=== PATIENT | male | born 1935 | race Hispanic/Latino ===

== ENCOUNTER 2017-02-08 20:29 | Inpatient (IN) | payer MEDICAID, SELFPAY ==
[2017-02-08 21:51] LABS: #Eosinphils 0.2 thou/uL (0.0-0.7); #Lymphocytes 1.5 thou/uL (1.20-3.40); #Monocytes 0.8 thou/uL (0.11-0.59); #Neutrophils 3.5 thou/uL (1.40-6.50); %Basophils 0.3 % (0.0-1.0); %Eosinophils 2.8 % (0.0-10.0); %Lymphocytes 25.3 % (21.0-51.0); %Monocytes 13.1 % (0.0-10.0); Mean Platelet Volume 9.1 fL (7.4-10.4); Red Blood Cell (RBC) Count 4.01 mill/uL (4.70-6.10); White Blood Cell (WBC) Count 6.1 thou/uL (4.8-10.8)
[2017-02-08 22:46] LABS: BUN (Urea Nitrogen) 24 mg/dL (8.4-25.7); Calc. Creatinine Clearance 0 mL/min (70-130); Calcium 9.2 mg/dL (7.8-10.44); Carbon Dioxide 22 mmol/L (23-31); Chloride 109 mmol/L (98-107); Estimated GFR-MDRD 34
[2017-02-08 22:59] LABS: Anion Gap 15 mmol/L (10-20)
[2017-02-08] MEDS ORDERED: Acetaminophen 325 MG TAB PO PRN (23:59)
[2017-02-08] MEDS ORDERED: Ondansetron HCl/PF 4 MG/2 ML Vial IVP PRN (23:59)
[2017-02-08] MEDS ORDERED: Ondansetron ODT 4 MG TAB SL PRN (23:59)
[2017-02-09] MEDS ORDERED: HYDROcodone/Acetaminophen 10/325 mg Tablet PO PRN (00:11)
[2017-02-09] MEDS ORDERED: Dextrose 5% in Water 1,000 ML IV PRN (00:11)
[2017-02-09] MEDS ORDERED: HYDROcodone/Acetaminophen 5/325 mg Tablet PO PRN (00:11)
[2017-02-09] MEDS ORDERED: HumaLOG 300 UNITS/3 ML VIAL SC PRN (00:11)
[2017-02-09] MEDS ORDERED: Enoxaparin Sodium 30 MG/0.3 ML SYRINGE SC SCH (00:11)
[2017-02-09] MEDS ORDERED: Ondansetron HCl/PF 4 MG/2 ML Vial IVP PRN (00:11)
[2017-02-09] MEDS ORDERED: Dextrose 50% Abboject 50 ML SYRINGE SLOW IVP PRN (00:11)
[2017-02-09 00:26] VITALS: BMI 25.7
[2017-02-09] MEDS: Vancomycin HCl 1 GM in Premix Bag 1 BAG IVPB SCH (00:47)
[2017-02-09] MEDS: hydrALAZINE 20 MG/ML VIAL SLOW IVP PRN (00:47)
[2017-02-09 06:24] LABS: Anion Gap 10 mmol/L (10-20); BUN (Urea Nitrogen) 23 mg/dL (8.4-25.7); Calc. Creatinine Clearance 30 mL/min (70-130); Calcium 8.7 mg/dL (7.8-10.44); Carbon Dioxide 28 mmol/L (23-31); Chloride 105 mmol/L (98-107); Estimated GFR-MDRD 36
[2017-02-09 06:31] LABS: Band 4 % (5-11); Hematocrit 37.3 % (42.0-52.0); Mean Platelet Volume 8.6 fL (7.4-10.4); Neutrophil 75 % (42-75); Red Blood Cell (RBC) Count 3.86 mill/uL (4.70-6.10); White Blood Cell (WBC) Count 4.3 thou/uL (4.8-10.8)
--- NOTE | 2017-02-09 07:04 | HP ---
DATE OF ADMISSION: 02/08/2017 TIME OF SERVICE: 2245 hours PRIMARY CARE PHYSICIAN: None. CHIEF COMPLAINT: Toe infection. HISTORY OF PRESENT ILLNESS: Mr. Reardon is an 81-year-old Afghan male who has received all his prio r care in [place]. He has a history of diabetes and hypertension. The patient was transferred from the [place], where he presented for evaluation of toe swelling, redness, and pain for the last 2 months or so. There he had labs that showed increased potassium, creatinine 1.94, elevated sed rate and CRP, elevat ed blood pressure, and x-ray of the right foot that showed osseous destruction of the distal second p halanx. He was subsequently transferred here for evaluation. In the emergency department here, repeat CBC was done that was stable. Dr. West was called who [facility] to consult and we were called for admission. The patient denies any fevers or chills, no chest pain or shortness of breath, no nausea or vomiting, diarrhea, or constipation. Patient does have a history of longstanding diabetes for the last 27 to 28 years. He says it is unde r poor control, however, hemoglobin A1c is low at 5.7. He does have hypertension, he takes captopril also for. He gets his medicines from [place]. He denies any other current complaints. PAST MEDICAL HISTORY: 1. Diabetes mellitus type 2. 2. Hypertension. 3. Probable CKD 3. 4. Probable peripheral vascular disease. PAST SURGICAL HISTORY: Denied. HOME MEDICATIONS: 1. Metformin 850 mg p.o. q.a.m. 2. Captopril 25 mg p.o. q.a.m. ALLERGIES: NKDA. FAMILY HISTORY: Negative for clotting or bleeding disorder, no immune dysfunction. There is some di abetes sporadically. SOCIAL HISTORY: Negative for habits x3. He lives here with his and daughter. We discussed cod e status, patient does wish to be a FULL CODE. His daughter is his medical decision maker. He was p resent with his daughter and granddaughter. REVIEW OF SYSTEMS: A 10-point review of systems was performed and negative for all other systems exc ept as stated as per HPI. PHYSICAL EXAMINATION: VITAL SIGNS: Temperature 98.8, pulse 79, blood pressure 176/81, respiratory rate 18, satting 94% on room air. GENERAL: He is awake. He is alert. He is oriented x3 . He is thin, frail-looking male, a ppears to be in no acute distress. HEENT: Normocephalic, atraumatic. Pupils are equal, round, reactive to light bilaterally. Mucous m embranes are moist. He has no visible lesions. No thrush. NECK: Supple without lymphadenopathy, JVD, or thyromegaly. He does have normal carotid upstrokes. I do not hear bruits. LUNGS: Clear to auscultation bilaterally. He has adequate air movement. Symmetrical chest excursio n. There is no prolonged expiratory phase. He has no wheezes, rales, or rhonchi. CARDIOVASCULAR: Normal S1 and S2. There is no S3 or S4. He had faint 2/6 systolic ejection murmur, best heard at the left upper sternal border without radiation. He has no diastolic murmurs. ABDOMEN: Soft, nontender, nondistended with normoactive bowel sounds. There is no rebound, rigidity , or guarding. EXTREMITIES: No cyanosis, no clubbing. He has edema of the left leg from the mid tibial level dista lly, 2+ pitting mostly at the ankle of the right leg. Left leg has no edema. He has nonpalpable pul ses in his dorsalis pedis and posterior tibial bilaterally. I cannot palpate peroneal pulse either. His left foot is cool, right foot is warm up to just proximal to the ankle. On the distal second to e just at the distal interphalangeal joint, there is a diabetic neuropathic ulcer present, opening of approximately 3-4 mm. Could not probe to bone; however, the toe is enlarged and edematous. It is t corona to motion. I cannot express purulence from it at this time. There is some redness extending u p to the dorsal bridge of the foot and some desquamation of the skin. MUSCULOSKELETAL: Otherwise normal to inspection. His large joints appear uninflamed and no palpable effusions. NEUROLOGIC: Cranial nerves II through XII are grossly intact without any focal neurological deficits . SKIN: Otherwise warm, moist. No well perfused. I do not see any other lesions. LABORATORY DATA: CMP at the outside facility show potassium of 5.8, creatinine 1.94, BUN is 26. Sod ium 140, chloride 107, bicarbonate 22. Liver functions were all normal. White blood cell count 6.1 here, hemoglobin 12.4, hematocrit 38.0, platelet count 135,000. CRP at the outside facility is 4.63 with a sed rate initially 62, repeated here was only 24. Hemoglobin A1c earlier today with a 5.7. R epeat potassium here has been ordered, but is pending. RADIOGRAPHIC STUDIES: Right toe three views showed right second toe distal phalanx osseous destructi on consistent with osteomyelitis. ASSESSMENT AND PLAN: 1. Chronic osteomyelitis of the distal second phalanx of the foot: This has been going on for some time. He already has osseous destruction. I am concerned about the ability for him to be able to he al this up with a distal amputation; however, we will consult Dr. West for his opinion. May need m ore of a vascular workup, or may need a more proximal amputation. We will leave to the discretion of Dr. West's expertise. 2. Diabetic neuropathic ulcer: The patient does have some degree of diabetic neuropathy. Wound car e has been consulted, but likely will not need to do anything until postoperative. 3. Diabetes mellitus type 2: Hemoglobin A1c is 5.7, so seems under reasonable control. He is on me tformin normally, we will use a sliding scale insulin for correction only right now, anticipation of surgery. 4. Hypertension: Blood pressure 176/81, patient is supposed to take his captopril this morning. We would use p.r.n. hydralazine, monitor his pressures closely. 5. Elevated creatinine 1.94, likely chronic kidney disease, would be stage 3. The patient does not have any known history of kidney problems, given his FADUMO inhibitor certainly could be contributing. We will hold it for now and gently hydrate. 6. Hyperkalemia: Potassium 5.8, patient has been on FADUMO inhibitor and does have increased creatinin e. Get treatment for that at the outside facility, repeat here is pending. We will hold captopril f or now and repeat in the morning.
--- NOTE | 2017-02-09 08:52 | HP ---
HISTORY OF PRESENT ILLNESS: This is an 81-year-old male patient, ambulatory at home, brought to the emergency room with osteomyelitis of the right second toe documented by radiographs, demonstrating os teomyelitis of the distal phalanx. He has cellulitis of the dorsum of the foot to the ankle, mild ed amaris. TOBACCO: He has never smoked. ALCOHOL: None. MEDICATIONS: Captopril 25 mg a day, metformin 850 mg a day. In the hospital, he has been placed on vancomycin and cefepime. White count 4, hemoglobin 11.8, BUN 23, creatinine 1.89 on admission, 1.8 t his morning. Electrolytes unremarkable. PAST SURGICAL HISTORY: He had umbilical hernia repair in [place] years ago. He has a hernia mass abo ve his umbilicus that he has had for many years that is asymptomatic. He has had prostate surgery an d is incontinence since and wears a diaper. PAST MEDICAL HISTORY: Diabetes, hypertension. PHYSICAL EXAMINATION: VITAL SIGNS: Height 5 feet 4 inches, weight 150 pounds, 25 BMI, temperature 99.7, pule 78, blood pre ssure 165/72. HEAD, EARS, EYES, NOSE AND THROAT: Unremarkable. LUNGS: Clear to auscultation. CARDIAC: Regular rate and rhythm without murmur or gallop. ABDOMEN: Soft, nontender. EXTREMITIES: Palpable femoral, popliteal pulses bilaterally. I cannot palpate pedal pulses. Right second toe reveals deviation of the great toe beneath the second toe and he has ulceration over the d orsal aspect of distal phalanx of second toe with edema of that second toe with cellulitis extending over the dorsum of foot and edema. ASSESSMENT AND PLAN: 1. Diabetic infection, right second toe with osteomyelitis. Would recommend amputation of the right second toe proximally. We will plan this tomorrow. We will allow him to eat today and n.p.o. after midnight tonight. 2. Peripheral artery disease by physical examination. There is no history of claudication. He is a mbulatory. He does not smoke. We will ask Dr. Richy Quinteros to see him regarding assessment of his c irculation to optimize wound healing. 3. Diabetes mellitus. 4. Hypertension. 5. Urinary incontinence after prostate surgery. 6. Abdominal mass supraumbilical. This is about 5-6 cm mass. I cannot reduce it, but he is asympto matic. We will await CT angio and they can address this abdominal wall mass at that time. I doubt a ny surgical intervention will be necessary as it is asymptomatic.
[2017-02-09] MEDS: Sodium Chloride 0.9% 1,000 ML IV SCH ×2 (08:58→20:19)
[2017-02-09] MEDS: Famotidine/PF 20 mg/2ml Vial SLOW IVP SCH (08:59)
[2017-02-09] MEDS ORDERED: FLU VACC TS2017-18 (>65YR) 0.5 ML SYRINGE IM ONE (09:00)
[2017-02-09] MEDS ORDERED: Cefepime 1 GM in Sodium Chloride 0.9% 100 ML IVPB SCH (09:00)
[2017-02-09] MEDS: Acetaminophen 325 MG TAB PO PRN (09:17)
--- NOTE | 2017-02-09 09:42 | PDOC.PN ---
- Subjective Encounter Start Date: 02/09/17 Encounter Start Time: 07:30 Subjective: no pain in right foot - Objective Resuscitation Status: Resuscitation Status FULL:Full Resuscitation MAR Reviewed: Yes Vital Signs & Weight: Vital Signs (12 hours) Temp Pulse Resp BP Pulse Ox 02/09/17 09:15 99.1 F 87 16 137/69 93 L 02/09/17 04:00 99.7 F H 78 18 165/72 H 94 L 02/09/17 00:47 75 02/09/17 00:05 99.3 F 75 18 185/85 H 96 Weight Weight 150 lb I&O: 02/08/17 02/09/17 02/10/17 06:59 06:59 06:59 Intake Total 100 Balance 100 Result Diagrams: 02/09/17 05:25 02/09/17 05:25 Additional Labs: Accuchecks 02/09/17 02/08/17 05:56 23:31 POC Glucose 142 H 76 Phys Exam - Physical Examination HEENT: PERRLA, moist MMs Neck: no JVD, supple Respiratory: no wheezing, no rales Cardiovascular: RRR, no significant murmur Gastrointestinal: soft, non-tender, positive bowel sounds midline mass, non pulsatile Musculoskeletal: pulses present right foot erythema and mild edema Neurological: non-focal, moves all 4 limbs Psychiatric: A&O x 3 Dx/Plan (1) 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 Status: Acute (2) Cellulitis of right foot Code(s): L03.115 - CELLULITIS OF RIGHT LOWER LIMB Status: Acute (3) DM type 2 (diabetes mellitus, type 2) Status: Chronic Qualifiers: Diabetes mellitus complication status: with kidney complications Diabetes mellitus complication detail: with chronic kidney disease Diabetes mellitus usp insulin use: without usp use Chronic kidney disease stage: stage 3 (moderate) Qualified Code(s): E11.22 - Type 2 diabetes mellitus with diabetic chronic kidney disease; N18.3 - Chronic kidney disease, stage 3 ( moderate); N18.3 - Chronic kidney disease, stage 3 (moderate) (4) CKD (chronic kidney disease) stage 3, GFR 30-59 ml/min Code(s): N18.3 - CHRONIC KIDNEY DISEASE, STAGE 3 (MODERATE) Status: Chronic (5) PVD (peripheral vascular disease) Code(s): I73.9 - PERIPHERAL VASCULAR DISEASE, UNSPECIFIED Status: Chronic - Plan is on vanc and cefepime -: wound care -: for amp in am along with vasc procedures if needed -: gentle hydration, watch for renal function -: to amb as tolerated * . Review of Systems - Medications/Allergies Allergies/Adverse Reactions: Allergies Allergy/AdvReac Type Severity Reaction Status Date / Time No Known Drug Allergies Allergy Verified 02/08/17 23:58 Medications: Current Medications Acetaminophen (Tylenol) 650 mg PO Q4H PRN PRN Reason: Headache/Fever or Pain Last Admin: 02/09/17 09:17 Dose: 650 mg Hydrocodone Bitart/Acetaminophen ([place] 10/325) 1 tab PO Q4H PRN PRN Reason: SEVERE Pain (7-10) Hydrocodone Bitart/Acetaminophen ([place] 5/325) 1 tab PO Q4H PRN PRN Reason: Moderate Pain (4-6) Dextrose/Water (Dextrose 50%) 25 gm SLOW IVP PRN PRN PRN Reason: Hypoglycemia Famotidine (Pepcid) 20 mg SLOW IVP DAILY [facility] Last Admin: 02/09/17 08:59 Dose: 20 mg Glucagon (Glucagon) 1 mg IM PRN PRN PRN Reason: Hypoglycemia Hydralazine HCl (Apresoline) 5 mg SLOW IVP Q2H PRN PRN Reason: SBP Greater Than 170 Last Admin: 02/09/17 00:47 Dose: 5 mg Dextrose/Water (D5w) 1,000 mls @ 0 mls/hr IV .Q0M PRN; As Directed PRN Reason: Hypoglycemia Vancomycin HCl 1 gm/ Device 200 mls @ 133.333 mls/hr IVPB Q24H [facility] Last Admin: 02/09/17 00:47 Dose: 200 mls Cefepime HCl 1 gm/Miscellaneous Medication 1 each/ Sterile Water 10 mls @ 120 mls/hr SLOW IVP Q12HR [facility] Sodium Chloride (Normal Saline 0.9%) 1,000 mls @ 100 mls/hr IV .Q10H [facility] Last Admin: 02/09/17 08:58 Dose: 1,000 mls Insulin Human Lispro (Humalog) 0 units SC .MILD SLIDING SCALE PRN PRN Reason: Mild Correctional Scale Ondansetron HCl (Zofran) 4 mg IVP Q6H PRN PRN Reason: Nausea/Vomiting Sodium Chloride (Flush - Normal Saline) 10 ml IVF PRN PRN PRN Reason: Saline Flush Stop: 02/09/17 11:00
[2017-02-09] MEDS: Cefepime 1 GM, Admixture Fee 1 EACH in Sterile Water 10 ML SLOW IVP SCH ×2 (10:06→20:19)
--- NOTE | 2017-02-09 14:38 | CON ---
DATE OF ADMISSION: 02/08/2017 DATE OF CONSULTATION: 02/09/2017 HISTORY OF PRESENT ILLNESS: Mr. Reardon is an 81-year-old [place] speaking only patient, who is ambu latory at home, was brought to the emergency room with right great toe osteomyelitis. He is due for a great toe amputation tomorrow. He has cellulitis of the dorsum of the foot and ankle and some sanjeev a of his foot and ankle. He has a thin well-perfused leg. Femoral pulses are palpable bilaterally. I cannot palpate popliteal, dorsalis pedis or posterior tibial pulses. We have attempted to get a C T angiogram, but his IV is inadequate. He has no IV sites other than placing a central line, which I do not think is reasonable in this situation to get a CT angiogram. I have been asked to see him fo r vascular evaluation. PAST MEDICAL HISTORY: 1. Diabetes mellitus. 2. Hypertension. PAST SURGICAL HISTORY: 1. Umbilical hernia in [place] years ago. 2. Prostate surgery. MEDICATIONS AT HOME: 1. Captopril 25 mg every day. 2. Metformin 850 mg every day. ALLERGIES: None. SOCIAL HISTORY: He does not use tobacco or alcohol. PHYSICAL EXAMINATION: GENERAL: This is an elderly gentleman resting comfortably. VITAL SIGNS: Temperature is 99.1, pulse is 87 and regular, blood pressure is 137/69. LUNGS: Clear bilaterally. HEART: Rhythm is regular. ABDOMEN: Soft and nontender. EXTREMITIES: There is no edema, other than of his right foot and ankle. VASCULAR: He has palpable carotid, radial, and femoral pulses bilaterally. I cannot palpate distal pulses. LABORATORY DATA: White blood cell count is 4.3, hemoglobin is 11.8. Creatinine is 1.80, potassium i s 4.9. ASSESSMENT AND PLAN: Osteomyelitis of the right foot. I have been asked to investigate his vascular inflow. We will plan for angiograms early this week for anatomic evaluation.
[2017-02-10] MEDS: Vancomycin HCl 1 GM in Premix Bag 1 BAG IVPB SCH (01:23)
[2017-02-10] MEDS: Sodium Chloride 0.9% 1,000 ML IV SCH ×2 (05:04→17:16)
[2017-02-10 05:42] LABS: Anion Gap 8 mmol/L (10-20); BUN (Urea Nitrogen) 20 mg/dL (8.4-25.7); Calc. Creatinine Clearance 31 mL/min (70-130); Calcium 8.3 mg/dL (7.8-10.44); Carbon Dioxide 26 mmol/L (23-31); Chloride 108 mmol/L (98-107); Estimated GFR-MDRD 38
[2017-02-10] MEDS: Cefepime 1 GM, Admixture Fee 1 EACH in Sterile Water 10 ML SLOW IVP SCH ×2 (09:11→21:30)
[2017-02-10] MEDS: Famotidine/PF 20 mg/2ml Vial SLOW IVP SCH (09:11)
--- NOTE | 2017-02-10 09:26 | PDOC.PN ---
- Subjective Encounter Start Date: 02/10/17 Encounter Start Time: 07:15 Subjective: feels better, no pain in his foot -: some cough but no expectoration - Objective Resuscitation Status: Resuscitation Status FULL:Full Resuscitation MAR Reviewed: Yes Vital Signs & Weight: Vital Signs (12 hours) Temp Pulse Resp BP Pulse Ox 02/10/17 07:28 98.6 F 71 18 174/79 H 98 02/10/17 04:00 98.7 F 71 20 162/71 H 91 L 02/10/17 00:00 98.7 F 70 20 157/75 H 95 Weight Weight 150 lb I&O: 02/09/17 02/10/17 02/11/17 06:59 06:59 06:59 Intake Total 100 2942 Balance 100 2942 Result Diagrams: 02/09/17 05:25 02/10/17 04:19 Additional Labs: Accuchecks 02/10/17 02/09/17 02/09/17 05:56 20:16 16:58 POC Glucose 112 H 145 H 129 H 02/09/17 11:39 POC Glucose 151 H Phys Exam - Physical Examination HEENT: PERRLA, moist MMs Neck: no JVD, supple Respiratory: no wheezing, no rales Cardiovascular: RRR, no significant murmur Gastrointestinal: soft, non-tender, positive bowel sounds right foot erythema and edema is receding Neurological: non-focal, moves all 4 limbs Psychiatric: A&O x 3 Dx/Plan (1) 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 Status: Acute (2) Cellulitis of right foot Code(s): L03.115 - CELLULITIS OF RIGHT LOWER LIMB Status: Acute (3) DM type 2 (diabetes mellitus, type 2) Status: Chronic Qualifiers: Diabetes mellitus complication status: with kidney complications Diabetes mellitus complication detail: with chronic kidney disease Diabetes mellitus watermelon inspector insulin use: without prison use Chronic kidney disease stage: stage 3 (moderate) Qualified Code(s): E11.22 - Type 2 diabetes mellitus with diabetic chronic kidney disease; N18.3 - Chronic kidney disease, stage 3 ( moderate); N18.3 - Chronic kidney disease, stage 3 (moderate) (4) CKD (chronic kidney disease) stage 3, GFR 30-59 ml/min Code(s): N18.3 - CHRONIC KIDNEY DISEASE, STAGE 3 (MODERATE) Status: Chronic (5) PVD (peripheral vascular disease) Code(s): I73.9 - PERIPHERAL VASCULAR DISEASE, UNSPECIFIED Status: Chronic - Plan is going for amp of right 2nd toe along with vasc studies today -: july tx to medsurg floor -: watch for vol overload/renal function -: is on cefepime and vanc * . Review of Systems - Medications/Allergies Allergies/Adverse Reactions: Allergies Allergy/AdvReac Type Severity Reaction Status Date / Time No Known Drug Allergies Allergy Verified 02/08/17 23:58 Medications: Current Medications Acetaminophen (Tylenol) 650 mg PO Q4H PRN PRN Reason: Headache/Fever or Pain Last Admin: 02/09/17 09:17 Dose: 650 mg Hydrocodone Bitart/Acetaminophen ([place] 10/325) 1 tab PO Q4H PRN PRN Reason: SEVERE Pain (7-10) Hydrocodone Bitart/Acetaminophen ([place] 5/325) 1 tab PO Q4H PRN PRN Reason: Moderate Pain (4-6) Dextrose/Water (Dextrose 50%) 25 gm SLOW IVP PRN PRN PRN Reason: Hypoglycemia Famotidine (Pepcid) 20 mg SLOW IVP DAILY [facility] Last Admin: 02/10/17 09:11 Dose: 20 mg Glucagon (Glucagon) 1 mg IM PRN PRN PRN Reason: Hypoglycemia Hydralazine HCl (Apresoline) 5 mg SLOW IVP Q2H PRN PRN Reason: SBP Greater Than 170 Last Admin: 02/09/17 00:47 Dose: 5 mg Dextrose/Water (D5w) 1,000 mls @ 0 mls/hr IV .Q0M PRN; As Directed PRN Reason: Hypoglycemia Vancomycin HCl 1 gm/ Device 200 mls @ 133.333 mls/hr IVPB Q24H [facility] Last Admin: 02/10/17 01:23 Dose: 200 mls Cefepime HCl 1 gm/Miscellaneous Medication 1 each/ Sterile Water 10 mls @ 120 mls/hr SLOW IVP Q12HR [facility] Last Admin: 02/10/17 09:11 Dose: 10 mls Sodium Chloride (Normal Saline 0.9%) 1,000 mls @ 100 mls/hr IV .Q10H [facility] Last Admin: 02/10/17 05:04 Dose: 1,000 mls Insulin Human Lispro (Humalog) 0 units SC .MILD SLIDING SCALE PRN PRN Reason: Mild Correctional Scale Ondansetron HCl (Zofran) 4 mg IVP Q6H PRN PRN Reason: Nausea/Vomiting
[2017-02-10] MEDS ORDERED: Bupivacaine 0.25% HCL 30 ML VIAL ONE (12:20)
[2017-02-10] MEDS ORDERED: Bupivacaine PF 0.5% 30 ML VIAL ONE (12:20)
[2017-02-10] MEDS ORDERED: Bupivacaine/Epinephrine 0.25% 30 ML VIAL ONE (12:20)
[2017-02-10] MEDS ORDERED: Fentanyl 100 MCG/2 ML VIAL ONE (12:21)
[2017-02-10] MEDS ORDERED: HYDROmorphone 2 MG/ML VIAL SLOW IVP PRN (12:59)
[2017-02-10] MEDS ORDERED: Morphine Sulfate 2 MG/ML SYRINGE SLOW IVP PRN (12:59)
[2017-02-10] MEDS ORDERED: Promethazine HCl 25 MG/ML VIAL SLOW IVP PRN (12:59)
[2017-02-10] MEDS ORDERED: Promethazine HCl 25 MG/ML VIAL IM PRN (12:59)
[2017-02-10] MEDS ORDERED: Meperidine HCl/PF 25 MG/ML VIAL SLOW IVP PRN (12:59)
[2017-02-10] MEDS ORDERED: Ondansetron HCl/PF 4 MG/2 ML Vial IVP PRN (12:59)
--- NOTE | 2017-02-10 13:49 | OP ---
PREOPERATIVE DIAGNOSES: Diabetic infection, right second toe with osteomyelitis and peripheral arter ial disease (scheduled for arteriogram tomorrow, Dr. Richy Quinteros) palpable femoral, popliteal pulse s. Nonpalpable distal pulses. Poor intravenous access. POSTOPERATIVE DIAGNOSES: Diabetic infection, right second toe with osteomyelitis and peripheral dennys rial disease (scheduled for arteriogram tomorrow, Dr. Richy Quinteros) palpable femoral, popliteal puls es. Nonpalpable distal pulses. Poor intravenous access. PROCEDURE PERFORMED: Right internal jugular central line. Amputation, right second toe of the proxi mal phalanx. Wound left on healing by secondary intention. Wound care placed a wound VAC. SURGEON: Dr. Darci West ANESTHESIA: General LMA. Local 1% Xylocaine. PROCEDURE IN DETAIL: Patient was taken to the operating room where under general LMA anesthesia, nec k, chest and right lower extremity were prepared with ChloraPrep, draped in routine fashion. Right i nternal jugular vein was cannulated with the trocar catheter. J-wire threaded, trocar catheter remov ed. Seldinger technique used to place a central line which was secured with 3-0 silk suture. Biopat ch Sterile dressing applied. Patient tolerated the procedure well. Each port aspirated blood and fl ushed with saline solution. Amputation of the right second toe undertaken with a fish mouth incision and carried the incision down through skin and subcutaneous tissue, connective tissue, and bone [place] sected with a bone cutter, resected proximally with rongeurs. Good hemostasis obtained with cautery. There was some bleeding. Connective tissue debrided sharply. Wound care team arrived and placed a wound VAC. The patient tolerated the procedure well.
[2017-02-10] MEDS ORDERED: hydrALAZINE 20 MG/ML VIAL ONE (13:55)
[2017-02-10] MEDS ORDERED: Ondansetron HCl/PF 4 MG/2 ML Vial ONE (14:25)
[2017-02-10] MEDS ORDERED: Propofol 200 MG/20 ML VIAL ONE (14:25)
[2017-02-10] MEDS ORDERED: Ketorolac Tromethamine 30 MG/ML VIAL ONE (14:25)
[2017-02-10] MEDS ORDERED: Lidocaine 1% PF 5 ML VIAL ONE (14:25)
--- NOTE | 2017-02-10 19:05 | RAD ---
PORTABLE AP CHEST X-RAY: 02/10/2017 HISTORY: Preoperative evaluation. FINDINGS: A right internal jugular vein central venous catheter is noted in place with tip overlying the lower aspect of the right atrium. Cardiac silhouette is magnified by projection but does appear mildly enl arged. Minimal nonspecific increased linear densities at each lung base which may relate to atelecta sis and/or scarring. Vascular calcification seen at the thoracic aorta. Degenerative changes noted in the spine. 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 IMPRESSION: 1. Right internal jugular vein central venous catheter noted in place with tip overlying the right at rium. There is no evidence of a pneumothorax. 2. Bibasilar interstitial densities probably related to atelectasis and/or scarring. POS: ANETTE
[2017-02-10] MEDS: Acetaminophen 325 MG TAB PO PRN (21:29)
[2017-02-10] MEDS: hydrALAZINE 20 MG/ML VIAL SLOW IVP PRN (21:44)
[2017-02-11] MEDS: Sodium Chloride 0.9% 1,000 ML IV SCH ×3 (03:17→21:04)
[2017-02-11] MEDS: Vancomycin HCl 1 GM in Premix Bag 1 BAG IVPB SCH (03:24)
[2017-02-11] MEDS ORDERED: Iopamidol 370 76% 50 ML VIAL FS ONE ×2 (04:58→04:59)
[2017-02-11] MEDS: Cefepime 1 GM, Admixture Fee 1 EACH in Sterile Water 10 ML SLOW IVP SCH ×2 (08:31→20:14)
[2017-02-11] MEDS: Famotidine/PF 20 mg/2ml Vial SLOW IVP SCH (08:32)
[2017-02-11] MEDS ORDERED: Heparin 1000 UNIT/NS 500ML(OR) 500 ML ONE (09:04)
[2017-02-11] MEDS ORDERED: Heparin 10,000 UNITS/1 ML VIAL ONE (09:44)
[2017-02-11] MEDS ORDERED: Protamine Sulfate 50 MG/5 ML VIAL ONE (10:02)
--- NOTE | 2017-02-11 10:36 | PDOC.PN ---
- Subjective Encounter Start Date: 02/11/17 Encounter Start Time: 08:30 -: old records requested/rev Patient seen and examined. No new complaints. No overnight events.plan for angiogram today - Objective Resuscitation Status: Resuscitation Status FULL:Full Resuscitation MAR Reviewed: Yes Vital Signs & Weight: Vital Signs (12 hours) Temp Pulse Resp BP Pulse Ox 02/11/17 08:17 97.7 F 63 18 94 L 02/11/17 07:25 97.7 F 63 18 157/74 H 94 L 02/11/17 04:00 98.2 F 65 16 137/70 97 02/11/17 00:00 98.2 F 69 18 121/62 95 Weight Admit Weight 150 lb Weight 150 lb I&O: 02/10/17 02/11/17 02/12/17 06:59 06:59 06:59 Intake Total 2942 1200 Balance 2942 1200 Result Diagrams: 02/09/17 05:25 02/10/17 04:19 Additional Labs: Accuchecks 02/11/17 02/10/17 02/10/17 05:40 21:39 17:40 POC Glucose 141 H 122 H 183 H Phys Exam - Physical Examination Constitutional: NAD HEENT: PERRLA, moist MMs, sclera anicteric Neck: no JVD, supple Respiratory: no wheezing, no rales, no rhonchi Cardiovascular: RRR, no significant murmur, no rub Gastrointestinal: soft, non-tender, no distention, positive bowel sounds Musculoskeletal: no edema right foot with dressing Neurological: non-focal, normal sensation Psychiatric: normal affect, A&O x 3 Skin: no rash, normal turgor Dx/Plan (1) Cellulitis of right foot Code(s): L03.115 - CELLULITIS OF RIGHT LOWER LIMB Status: Acute (2) 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 Status: Acute Comment: s/p amputation of right 2nd toe (3) CKD (chronic kidney disease) stage 3, GFR 30-59 ml/min Code(s): N18.3 - CHRONIC KIDNEY DISEASE, STAGE 3 (MODERATE) Status: Chronic (4) DM type 2 (diabetes mellitus, type 2) Status: Chronic Qualifiers: Diabetes mellitus complication status: with kidney complications Diabetes mellitus complication detail: with chronic kidney disease Diabetes mellitus french translator insulin use: without jail use Chronic kidney disease stage: stage 3 (moderate) Qualified Code(s): E11.22 - Type 2 diabetes mellitus with diabetic chronic kidney disease; N18.3 - Chronic kidney disease, stage 3 ( moderate); N18.3 - Chronic kidney disease, stage 3 (moderate) (5) PVD (peripheral vascular disease) Code(s): I73.9 - PERIPHERAL VASCULAR DISEASE, UNSPECIFIED Status: Chronic Comment: s/p angiogram today (6) Anemia, macrocytic Code(s): D53.9 - NUTRITIONAL ANEMIA, UNSPECIFIED Status: Chronic - Plan cont current plan of care, continue antibiotics * continue selected home meds * medication reviewed as below * symptomatic treatment * continue IV antibiotics as ordered * monitor renal function after angiogram * wound care. Review of Systems - Review of Systems ENT: negative: Ear Pain, Ear Discharge, Nose Pain, Nose Discharge, Nose Congestion, Mouth Pain, Mouth Swelling, Throat Pain, Throat Swelling, Other Respiratory: negative: Cough, Dry, Shortness of Breath, Hemoptysis, SOB with Excertion, Pleuritic Pain, Sputum, Wheezing Cardiovascular: negative: Chest Pain, Palpitations, Orthopnea, Paroxysmal Noc. Dyspnea, Edema, Light Headedness, Other Gastrointestinal: negative: Nausea, Vomiting, Abdominal Pain, Diarrhea, Constipation, Melena, Hematochezia, Other Genitourinary: negative: Dysuria, Frequency, Incontinence, Hematuria, Retention , Other Musculoskeletal: negative: Neck Pain, Shoulder Pain, Arm Pain, Back Pain, Hand Pain, Leg Pain, Foot Pain, Other - Medications/Allergies Allergies/Adverse Reactions: Allergies Allergy/AdvReac Type Severity Reaction Status Date / Time No Known Drug Allergies Allergy Verified 02/08/17 23:58 Medications: Current Medications Acetaminophen (Tylenol) 650 mg PO Q4H PRN PRN Reason: Headache/Fever or Pain Last Admin: 02/10/17 21:29 Dose: 650 mg Hydrocodone Bitart/Acetaminophen ([place] 10/325) 1 tab PO Q4H PRN PRN Reason: SEVERE Pain (7-10) Hydrocodone Bitart/Acetaminophen ([place] 5/325) 1 tab PO Q4H PRN PRN Reason: Moderate Pain (4-6) Dextrose/Water (Dextrose 50%) 25 gm SLOW IVP PRN PRN PRN Reason: Hypoglycemia Famotidine (Pepcid) 20 mg SLOW IVP DAILY FRENCH Last Admin: 02/11/17 08:32 Dose: 20 mg Glucagon (Glucagon) 1 mg IM PRN PRN PRN Reason: Hypoglycemia Hydralazine HCl (Apresoline) 5 mg SLOW IVP Q2H PRN PRN Reason: SBP Greater Than 170 Last Admin: 02/10/17 21:44 Dose: 5 mg Dextrose/Water (D5w) 1,000 mls @ 0 mls/hr IV .Q0M PRN; As Directed PRN Reason: Hypoglycemia Vancomycin HCl 1 gm/ Device 200 mls @ 133.333 mls/hr IVPB Q24H [facility] Last Admin: 02/11/17 03:24 Dose: 200 mls Cefepime HCl 1 gm/Miscellaneous Medication 1 each/ Sterile Water 10 mls @ 120 mls/hr SLOW IVP Q12HR [facility] Last Admin: 02/11/17 08:31 Dose: 10 mls Sodium Chloride (Normal Saline 0.9%) 1,000 mls @ 100 mls/hr IV .Q10H [facility] Last Admin: 02/11/17 03:17 Dose: 1,000 mls Insulin Human Lispro (Humalog) 0 units SC .MILD SLIDING SCALE PRN PRN Reason: Mild Correctional Scale Ondansetron HCl (Zofran) 4 mg IVP Q6H PRN PRN Reason: Nausea/Vomiting
[2017-02-11] MEDS ORDERED: Ondansetron ODT 4 MG TAB PO PRN (10:37)
[2017-02-11] MEDS ORDERED: Senokot 8.6 MG TAB PO PRN (10:37)
[2017-02-11] MEDS ORDERED: Mag-Al 1200 mg/1200 mg/30 ML UDCUP PO PRN (10:37)
[2017-02-11] MEDS ORDERED: Labetalol HCl 100 MG/20 ML VIAL SLOW IVP PRN (10:37)
[2017-02-11] MEDS ORDERED: Chloraseptic Spray 180 ml Bottle PO PRN (10:37)
[2017-02-11] MEDS ORDERED: Loperamide HCl 2 MG CAP PO PRN (10:37)
[2017-02-11] MEDS ORDERED: Artificial Tears 18 DROP/0.9 ML EA EYE PRN (10:37)
[2017-02-11] MEDS ORDERED: Temazepam 15 MG CAP PO PRN (10:37)
[2017-02-11] MEDS ORDERED: Eucerin (Mineral Oil/Petrolatum,White) 30 gm Jar TOP PRN (10:37)
[2017-02-11] MEDS ORDERED: Loratadine 10 MG TAB PO PRN (10:37)
[2017-02-11] MEDS ORDERED: Sodium Chloride 0.65% Nasal 44 ML BOT EA NARE PRN (10:37)
[2017-02-11] MEDS ORDERED: Milk Of Magnesia 30 ML UDCUP PO PRN (10:37)
--- NOTE | 2017-02-11 13:01 | OP ---
DATE OF PROCEDURE: 02/11/2017 PREOPERATIVE DIAGNOSIS: Peripheral vascular disease with right foot gangrene status post toe amputation. POSTOPERATIVE DIAGNOSIS: Peripheral vascular disease with right foot gangrene status post toe amputation. PROCEDURES: 1. Abdominal aortogram with pelvic runoff. 2. Right external iliac artery angiogram with right leg run off. 4. Right popliteal artery angiogram. 5. Right superficial femoral artery angiogram. 6. Right anterior tibial artery angiogram. 7. Right anterior tibial artery LAUNDRY MANAGER with a 2 x 220 followed by a 3 x 220 [place] balloon taken to 12 mmHg for 2 minutes in 2 separate locations. 8. Ultrasound guided arterial access. 9. Left external iliac artery angiogram. 10. Closure with a ProGlide closure device. SURGEON: Richy Quinteros M.D. ANESTHESIA: 1% lidocaine for local. TOTAL CONTRAST: 40 mL. TOTAL FLUOROSCOPY TIME: 6.3 minutes. PROCEDURE IN DETAIL: After consent was obtained, the patient was brought to the Licensed Audiologist and placed in supine position on the Licensed Audiologist table. Appropriate anesthetic monitor was placed. The groins were prepped and draped in usual sterile fashion. Left groin was anesthetized with 1% lidocaine. Using ultrasound guidance, the left common femoral artery was percutaneously accessed and a Yonghong Tech guidewire passed into the upper abdominal aorta. A 5-Iraqi sheath followed by a Contra catheter was placed in the aorta. Hand injected aortogram was performed. There was no obstructing aortic, common iliac or external iliac arterial atherosclerosis. The Contra catheter was guided over the aortic bifurcation down into the external iliac artery. Using digital angiography contrast was chased from groin to the foot. The common femoral and superficial femoral, and profunda femoris arteries were all widely patent without intraluminal encroachment by atherosclerotic disease. At the level of the knee, the popliteal artery was widely patent. There was normal trifurcation below the knee. Posterior tibial, anterior tibial and profunda artery origins were widely patent. The catheter was guided further down into the superficial femoral artery. Hand injected arteriogram was performed again, illuminating the tibial arteries under digital subtraction. The anterior tibial artery was diffusely diseased throughout its length, but had a good caliber distal target vessel. The posterior tibial and peroneal arteries were patent into the foot. The patient was given 5000 units of heparin. A Magic Torque guidewire was placed into the distal superficial femoral artery. A 5- Iraqi sheath was removed and a 5-Iraqi destination sheath placed down with its tip in the superficial femoral artery. An angled glide catheter was placed into the distal popliteal artery. Hand injected arteriogram was performed illuminating the trifurcation. Using a Luge guidewire, the Luge was guided down into the origin of the anterior tibial artery. Catheter was then chased into the origin of the anterior tibial artery. Hand injected arteriogram was performed illuminating the full length of the anterior tibial confirming the diffuse disease. Luge guidewire was guided into the distal anterior tibial below the area of stenosis. We initially selected a 2 x 220 [place] balloon. This was inflated for 2 minutes in 2 separate locations at 12 mmHg. Followup arteriogram with the catheter in the superficial femoral artery showed an inadequate result and therefore we selected 3 x 220 and performed a similar angioplasty. Followup angiogram with the catheter in the distal popliteal artery showed an excellent result with no residual stenosis. Guidewires and catheters were removed. The Yonghong Tech guidewire was replaced and the sheath withdrawn over the aortic bifurcation with its tip in the external iliac artery. Hand injected arteriogram was performed of the external iliac artery on the left, confirming that there was no atherosclerotic disease. ProGlide was then deployed and with good hemostasis. The patient tolerated the procedure well, and was transferred to the recovery room and will be monitored there for 4 hours prior to going back to the floor. RANJIT
[2017-02-11] MEDS: hydrALAZINE 20 MG/ML VIAL SLOW IVP PRN ×2 (13:49→20:13)
[2017-02-11] MEDS: Diabetic Tussin 200 MG/10 ML UDCUP PO PRN (14:50)
--- NOTE | 2017-02-11 20:53 | CCL ---
DATE OF PROCEDURE: 02/11/2017 PREOPERATIVE DIAGNOSIS: Peripheral vascular disease with right foot gangrene status post toe amputat ion. POSTOPERATIVE DIAGNOSIS: Peripheral vascular disease with right foot gangrene status post toe amputa tion. PROCEDURES: 1. Abdominal aortogram with pelvic runoff. 2. Right external iliac artery angiogram with right leg run off. 3. Right common femoral artery angiogram. 4. Right popliteal artery angiogram. 5. Right superficial femoral artery angiogram. 6. Right anterior tibial artery angiogram. 7. Right anterior tibial artery VOTING MACHINE REPAIRER with a 2 x 220 followed by a 3 x 220 Sachse balloon taken to 12 mmHg for 2 minutes in 2 separate locations. 8. Ultrasound guided arterial access. 9. Left external iliac artery angiogram. 10. Closure with a ProGlide closure device. SURGEON: Richy Quinteros M.D. ANESTHESIA: 1% lidocaine for local. TOTAL CONTRAST: 40 mL. TOTAL FLUOROSCOPY TIME: 6.3 minutes. PROCEDURE IN DETAIL: After consent was obtained, the patient was brought to the Drupal Web Developer and placed in supine position on the Drupal Web Developer table. Appropriate anesthetic monitor was placed. The groins wer e prepped and draped in usual sterile fashion. Left groin was anesthetized with 1% lidocaine. Using ultrasound guidance, the left common femoral artery was percutaneously accessed and a [employer] guidew phill passed into the upper abdominal aorta. A 5-Latvian sheath followed by a Contra catheter was place d in the aorta. Hand injected aortogram was performed. There was no obstructing aortic, common papo c or external iliac arterial atherosclerosis. The Contra catheter was guided over the aortic bifurca tion down into the external iliac artery. Using digital angiography contrast was chased from groin t o the foot. The common femoral and superficial femoral, and profunda femoris arteries were all widel y patent without intraluminal encroachment by atherosclerotic disease. At the level of the knee, the popliteal artery was widely patent. There was normal trifurcation below the knee. Posterior tibial , anterior tibial and profunda artery origins were widely patent. The catheter was guided further do wn into the superficial femoral artery. Hand injected arteriogram was performed again, illuminating the tibial arteries under digital subtraction. The anterior tibial artery was diffusely diseased thr oughout its length, but had a good caliber distal target vessel. The posterior tibial and peroneal a rteries were patent into the foot. The patient was given 5000 units of heparin. A Magic Torque guid ewire was placed into the distal superficial femoral artery. A 5-Latvian sheath was removed and a 5-F rench destination sheath placed down with its tip in the superficial femoral artery. An angled glide catheter was placed into the distal popliteal artery. Hand injected arteriogram was performed illum inating the trifurcation. Using a Luge guidewire, the Luge was guided down into the origin of the an terior tibial artery. Catheter was then chased into the origin of the anterior tibial artery. Hand injected arteriogram was performed illuminating the full length of the anterior tibial confirming the diffuse disease. Luge guidewire was guided into the distal anterior tibial below the area of stenos is. We initially selected a 2 x 220 Sachse balloon. This was inflated for 2 minutes in 2 separate l ocations at 12 mmHg. Followup arteriogram with the catheter in the superficial femoral artery showed an inadequate result and therefore we selected 3 x 220 and performed a similar angioplasty. Followu p angiogram with the catheter in the distal popliteal artery showed an excellent result with no resid ual stenosis. Guidewires and catheters were removed. The [employer] guidewire was replaced and the she ath withdrawn over the aortic bifurcation with its tip in the external iliac artery. Hand injected a rteriogram was performed of the external iliac artery on the left, confirming that there was no ather osclerotic disease. ProGlide was then deployed and with good hemostasis. The patient tolerated the procedure well, and was transferred to the recovery room and will be monitored there for 4 hours prio r to going back to the floor. POS: [facility]
[2017-02-12 00:07] LABS: Vancomycin, Trough 16.8 ug/mL
[2017-02-12] MEDS: Vancomycin HCl 1 GM in Premix Bag 1 BAG IVPB SCH (00:52)
[2017-02-12] MEDS: Sodium Chloride 0.9% 1,000 ML IV SCH (05:21)
[2017-02-12 05:33] LABS: #Eosinphils 0.1 thou/uL (0.0-0.7); #Monocytes 0.4 thou/uL (0.11-0.59); %Basophils 0.3 % (0.0-1.0); %Eosinophils 1.9 % (0.0-10.0); %Lymphocytes 23.1 % (21.0-51.0); %Monocytes 9.3 % (0.0-10.0); Hematocrit 34.9 % (42.0-52.0); Mean Platelet Volume 8.3 fL (7.4-10.4); Red Blood Cell (RBC) Count 3.58 mill/uL (4.70-6.10); White Blood Cell (WBC) Count 4.5 thou/uL (4.8-10.8)
[2017-02-12 06:02] LABS: Anion Gap 6 mmol/L (10-20); BUN (Urea Nitrogen) 15 mg/dL (8.4-25.7); BUN/Creatinine Ratio 9.26; Calc. Creatinine Clearance 34 mL/min (70-130); Calcium 7.7 mg/dL (7.8-10.44); Carbon Dioxide 28 mmol/L (23-31); Chloride 108 mmol/L (98-107); Estimated GFR-MDRD 41; Phosphorus 2.5 mg/dL (2.3-4.7)
[2017-02-12] MEDS: Cefepime 1 GM, Admixture Fee 1 EACH in Sterile Water 10 ML SLOW IVP SCH (09:19)
[2017-02-12] MEDS: hydrALAZINE 20 MG/ML VIAL SLOW IVP PRN (09:20)
[2017-02-12] MEDS: Famotidine/PF 20 mg/2ml Vial SLOW IVP SCH (09:20)
[2017-02-12] MEDS: Diabetic Tussin 200 MG/10 ML UDCUP PO PRN (09:26)
[2017-02-12] MEDS ORDERED: FLU VACC TS2017-18 (>65YR) 0.5 ML SYRINGE IM ONE (12:00)
--- NOTE | 2017-02-12 12:02 | PDOC.PN ---
- Subjective Encounter Start Date: 02/12/17 Encounter Start Time: 09:45 Subjective: feels better, no pain - Objective Resuscitation Status: Resuscitation Status FULL:Full Resuscitation MAR Reviewed: Yes Vital Signs & Weight: Vital Signs (12 hours) Temp Pulse Resp BP BP Pulse Ox 02/12/17 09:20 75 188/72 H 02/12/17 07:45 97.9 F 66 16 192/84 H 99 02/12/17 04:00 98.3 F 69 16 160/76 H 97 Weight Admit Weight 150 lb Weight 150 lb I&O: 02/11/17 02/12/17 02/13/17 06:59 06:59 06:59 Intake Total 2640 Balance 2640 Result Diagrams: 02/12/17 05:10 02/12/17 05:10 Additional Labs: Accuchecks 02/12/17 02/11/17 02/11/17: 19:54 16:09 POC Glucose 167 H 166 H 129 H Phys Exam - Physical Examination HEENT: PERRLA, moist MMs Neck: no JVD, supple Respiratory: no wheezing, no rales Cardiovascular: RRR, no significant murmur Gastrointestinal: soft, no distention, positive bowel sounds Musculoskeletal: pulses present Neurological: non-focal, moves all 4 limbs Psychiatric: A&O x 3 Dx/Plan (1) 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 Status: Acute Comment: s/p amputation of right 2nd toe (2) Cellulitis of right foot Code(s): L03.115 - CELLULITIS OF RIGHT LOWER LIMB Status: Resolved (3) DM type 2 (diabetes mellitus, type 2) Status: Chronic Qualifiers: Diabetes mellitus complication status: with kidney complications Diabetes mellitus complication detail: with chronic kidney disease Diabetes mellitus analytic programmer insulin use: without analytic programmer use Chronic kidney disease stage: stage 3 (moderate) Qualified Code(s): E11.22 - Type 2 diabetes mellitus with diabetic chronic kidney disease; N18.3 - Chronic kidney disease, stage 3 ( moderate); N18.3 - Chronic kidney disease, stage 3 (moderate) (4) CKD (chronic kidney disease) stage 3, GFR 30-59 ml/min Code(s): N18.3 - CHRONIC KIDNEY DISEASE, STAGE 3 (MODERATE) Status: Chronic (5) PVD (peripheral vascular disease) Code(s): I73.9 - PERIPHERAL VASCULAR DISEASE, UNSPECIFIED Status: Chronic Comment: s/p angioplasty - Plan d/w , july dc home -: meds faxed to his pharmacy -: wound care per surgery advice -: asp daily for pvd, oral iron * .
--- NOTE | 2017-02-12 12:40 | PRG ---
DATE OF SERVICE: 02/12/2017 SUBJECTIVE: Mr. Reardon is doing well. His right second toe looks good. He no longer needs a wound VAC. I would change to wound care 2 to 3 times a week outpatient [facility]. The family can be instructed on wound care. At this point, I will see him in outpatient wound care when they called me in 2 week s or they can visit my office in approximately 3 weeks. I expect this wound to heal without problems successful, interventional angioplasty, anterior tibial artery by Dr. Quinteros.
[2017-02-12 16:41] VITALS: BP 168/69; TEMP 98.5
--- NOTE | 2017-02-12 23:04 | DIS ---
DATE OF ADMISSION: 02/08/2017 DATE OF DISCHARGE: 02/12/2017 DISCHARGE DISPOSITION: To home. PRIMARY DISCHARGE DIAGNOSES: Right second toe osteomyelitis, status post amputation; peripheral vasc ular disease, status post angioplasty of right lower extremity; cellulitis of right foot, resolved. SECONDARY DISCHARGE DIAGNOSES: Diabetes mellitus, type 2; chronic kidney disease, stage 3. PROCEDURES DONE DURING HOSPITALIZATION: The patient has had x-ray of right foot done, which showed e xtensive osseous destruction of distal phalanx of right second toe consistent with osteomyelitis. Th e patient has had amputation of right second toe of the proximal phalanx. Wound was left for healing by secondary intention. He has had angioplasty of right anterior tibial artery, done by Dr. Aldair matthews 02/11/2017. Blood cultures x2 no growth. H&H are 11 and 35, platelet count 129. Discharge BUN an d creatinine are 15 and 1.6. DISCHARGE MEDICATIONS: Aspirin 81 mg p.o. daily, captopril 25 mg p.o. daily, ferrous sulfate 325 mg p.o. twice daily, glipizide 5 mg p.o. daily, metoprolol 25 mg p.o. twice daily. ALLERGIES: No known drug allergies. INPATIENT CONSULTS: Dr. West for General Surgery, Dr. Richy Quinteros for Vascular Surgery. BRIEF COURSE DURING HOSPITALIZATION: The patient initially got admitted on 02/08/2017 for chronic ri ght second toe ulcerations. He was found to have had osteomyelitis on the x-ray of the right second toe. The patient has had consultation with Dr. West for General Surgery and Dr. Quinteros for Vascular Surgery due to peripheral vascular disease. He has had amputation of the right second proximal phal anx by Dr. West and has had angioplasty of right anterior tibial artery done by Dr. Quinteros as well. He was initially on wound VAC, but the wound has been healing well and he will be following wound ca re instructions per Dr. West. He needs to follow up with Dr. West in 2 weeks. His renal functio n has remained stable. He is hemodynamically stable and has been cleared by specialist for discharge today. Please see a [id number] documentation on [facility] for the day of discharge.
--- NOTE | 2017-03-18 11:22 | EKG ---
Test Reason : Blood Pressure : / mmHG Vent. Rate : 078 BPM Atrial Rate : 078 BPM P-R Int : 114 ms QRS Dur : 072 ms QT Int : 370 ms P-R-T Axes : 026 016 056 degrees QTc Int : 421 ms Normal sinus rhythm Normal ECG Confirmed by SHELLEY Caballero, REYNOLD ([id number]), offline editor MONTY BALLARD ([id number]) on 03/18/2017 11:21:56 AM Referred By: SHELLEY Confirmed By:REYNOLD ROSA M.D.
== END 2017-02-12 16:45 | disposition home or self-care (01) | DRG 617 ==
LOC: ERS 20:29 → 2NO 22:43 → SURG B 02-10 13:58
PROVIDERS: ADMIT Internal Medicine Infectious Disease; ATTEND Internal Medicine Infectious Disease
PROC: 0Y6R0Z0 Detachment at Right 2nd Toe, Complete, Open Approach (ICD-10-PCS; 2017-02-10)
PROC: 02H633Z Insertion of Infusion Device into Right Atrium, Percutaneous Approach (ICD-10-PCS; 2017-02-10)
PROC: B41D1ZZ Fluoroscopy of Aorta and Bilateral Lower Extremity Arteries using Low Osmolar Contrast (ICD-10-PCS; principal; 2017-02-11)
PROC: 047P3ZZ Dilation of Right Anterior Tibial Artery, Percutaneous Approach (ICD-10-PCS; 2017-02-11)
DX: E11.69 Type 2 diabetes mellitus with other specified complication (principal); L03.115 Cellulitis of right lower limb; E11.22 Type 2 diabetes mellitus with diabetic chronic kidney disease; M86.9 Osteomyelitis, unspecified; E87.5 Hyperkalemia; E11.51 Type 2 diabetes mellitus with diabetic peripheral angiopathy without gangrene; E11.621 Type 2 diabetes mellitus with foot ulcer; Z79.84 Long term (current) use of oral hypoglycemic drugs; L97.519 Non-pressure chronic ulcer of other part of right foot with unspecified severity; R32 Unspecified urinary incontinence; I12.9 Hypertensive chronic kidney disease with stage 1 through stage 4 chronic kidney disease, or unspecified chronic kidney disease; N18.3 Chronic kidney disease, stage 3 (moderate); D64.9 Anemia, unspecified
CPT/HCPCS: 36415; 36416; 37228; 71010; 75710; 76942; 80048; 80069; 80202; 85025; 85347; 85652; 86140; 88305; 88311; 90471; 90682; 90732; 93005; A4216; C1760; C1769; C1887; G0008; G0009; J0360; J0692; J1644; J1650; J1885; J2001; J2405; J2704; J2720; J3010; J3370; Q2036; S0020; S0028

== ENCOUNTER 2017-02-19 09:07 | Outpatient (CLI) | payer OTHER, SELFPAY ==
--- NOTE | 2017-02-19 11:22 | HP ---
DATE OF SERVICE: 02/19/2017 HISTORY OF PRESENT ILLNESS: Mr. Erwin Reardon is a very pleasant 81-year-old gentleman who present s to the [facility] for evaluation of a wound of the right foot subsequent to amputation of the rig ht second toe. The patient underwent the preceding procedure on 02/10/[address] Darci West. A t the time of surgery, Mr. Reardon also underwent wound VAC placement. Negative pressure therapy was discontinued prior to the patient's discharge from [facility] and the patient has been receiving dressing changes of Silvercel for the wound of the right second toe on a daily ba sis after cleansing and irrigation. Also, during the patient's hospital stay, Mr. Reardon underwent percutaneous revascularization of the right lower extremity on 02/11/[address] Richy Quinteros. PAST MEDICAL HISTORY: 1. Diabetes mellitus. 2. Hypertension. 3. Peripheral vascular disease. 4. Chronic kidney disease stage 3. PAST SURGICAL HISTORY: 1. Umbilical hernia repair. 2. Prostate surgery. 3. Right second toe amputation/wound VAC placement. MEDICATIONS: 1. Iron. 2. Aspirin. 3. Glipizide. 4. Lopressor. 5. Capoten. ALLERGIES: No known diagnosed allergies. SOCIAL HISTORY: Social history is negative for tobacco or ETOH use, current or previous. FAMILY HISTORY: Family history is significant for diabetes mellitus. The patient's father was diagn osed with diabetes mellitus. Family history is negative for coronary artery disease. PHYSICAL EXAMINATION: VITAL SIGNS: Temperature 97.7, pulse 75, respirations 18, blood pressure 183/86. Accu-Chek 116. GENERAL: An 81-year-old gentleman sitting on chair in examination room, in no acute distress. HEENT: Normocephalic, atraumatic. NECK: No nuchal rigidity. CHEST: Clear to auscultation. CARDIAC: Regular rate and rhythm. ABDOMEN: Soft. EXTREMITIES: A wound of the right second toe is present, which measures approximately 0.8 x 0.8 cm. Necrotic and nonviable tissue present within the wound margins was debrided with an excisional full- thickness debridement with the use of a curette. No purulent drainage is associated with the granula ting wound. No cellulitis of the right foot is appreciated. No maceration of the skin of the periwo und is noted. A dorsalis pedis pulse is easily palpable on the right. No significant edema of the [facility] is present on exam today. ASSESSMENT AND PLAN: 1. Wound of right second toe subsequent to right second toe amputation on 02/10/2017. Negative pres sure therapy was initiated at the time of surgery and treatment with the wound VAC was discontinued p rior to the patient's discharge. Dressing changes of Silvercel will be continued on a daily basis af ter cleansing and irrigation. No antibiotics will be prescribed today based upon the appearance of t he wound. I will see Mr. Reardon again in two weeks. 2. Diabetes mellitus. The patient's Accu-Chek in clinic today is 116. The patient has been told th at for optimal wound healing, his blood glucoses should remain below 150. 3. Hypertension. 4. Peripheral vascular disease. The patient is status post percutaneous revascularization of the [facility] lower extremity by Dr. Richy Quinteros on 02/11/2017. 5. Chronic kidney disease stage 3.
== END 2017-02-19 09:08 | disposition home or self-care (01) ==
LOC: WCC 09:07
PROVIDERS: ATTEND Family Medicine
DX: S91.104D Unspecified open wound of right lesser toe(s) without damage to nail, subsequent encounter (principal)
CPT/HCPCS: 11042; 99203; G0463

== ENCOUNTER 2017-03-03 10:04 | Outpatient (CLI) | payer OTHER ==
--- NOTE | 2017-03-03 11:09 | PRG ---
DATE OF SERVICE: 03/03/2017 HISTORY: Mr. Erwin Reardon is a very pleasant 81-year-old gentleman who presents to the [facility] for evaluation of a wound of the right foot subsequent to amputation of the right great toe. The patient underwent the preceding procedure on 02/10/[address] Darci West. At the time of surgery , Mr. Reardon also underwent wound VAC placement. Negative pressure therapy was discontinued prior to the patient's discharge from [facility] and prior to being seen in the Wound Center, the patient had been receiving dressing changes of Silvercel for the wound of the right second toe on a daily basis after cleansing and irrigation. Also, during the patient's hospital stay, Mr. Reardon underwent percutaneous revascularization of the right lower extremity on 02/11/[address] Richy Quinteros. PHYSICAL EXAMINATION: VITAL SIGNS: Temperature 97.5, respirations 18, Accu-Chek 103. EXTREMITIES: A wound of the right second toe is present which measures approximately 0.4 x 0.5 cm. The dimensions of the wound at the time of the patient's last visit were approximately 0.8 x 0.8 cm. Granulation tissue is present within the wound margins. Necrotic and nonviable tissue present within the wound margins was debrided with an excisional full-thickness debridement with the use of a curette and scissors. A small amount of purulent drainage was associated with the wound and was sent for aerobic and anaerobic cultures. No cellulitis of the right foot is appreciated. No maceration of the skin of the periwound is noted. A dorsalis pedis pulse is easily palpable on the right. No significant edema of the right foot is present on exam today. ASSESSMENT AND PLAN: 1. Wound of right second toe subsequent to right second toe amputation on 02/10. Negative pressure therapy was initiated at the time of surgery and treatment with the wound VAC was discontinued prior to the patient's discharge. Dressing changes of Silvercel will be continued on a daily basis after cleansing and irrigation. The patient has been given a prescription for Bactrim DS #20 one p.o. b.i.d. x10 days. Antibiotic therapy will be modified based upon the results of cultures obtained today of the purulent drainage associated with the wound. I will see Mr. Reardon again in 3-4 weeks. 2. Diabetes mellitus. The patient's Accu-Chek in clinic today is 103. The patient has been reminded that for optimal wound healing, his blood glucoses should remain below 150. 3. Hypertension. 4. Peripheral vascular disease. The patient is status post percutaneous revascularization of the right lower extremity by Dr. Richy Quinteros on 2016. 5. Chronic kidney disease stage 3. MTDD
[2017-03-03] MEDS ORDERED: Sodium Chloride 0.9% 15 ML NEB ONE (17:05)
[2017-03-03] MEDS ORDERED: Lidocaine 2% Jelly 5 ML TUBE ONE (17:05)
== END 2017-03-03 10:05 | disposition home or self-care (01) ==
LOC: WCC 10:04
PROVIDERS: ATTEND Family Medicine
DX: T87.89 Other complications of amputation stump (principal); E11.22 Type 2 diabetes mellitus with diabetic chronic kidney disease; I12.9 Hypertensive chronic kidney disease with stage 1 through stage 4 chronic kidney disease, or unspecified chronic kidney disease; N18.3 Chronic kidney disease, stage 3 (moderate); I73.9 Peripheral vascular disease, unspecified
CPT/HCPCS: 11042; 87070; 87077; 87186; 87205; A4218

== ENCOUNTER 2017-03-03 19:04 | Emergency (ER) | payer MEDICAID, OTHER, SELFPAY ==
[2017-03-03 20:12] LABS: #Eosinphils 0.1 thou/uL (0.0-0.7); #Lymphocytes 1.6 thou/uL (1.20-3.40); #Monocytes 0.4 thou/uL (0.11-0.59); #Neutrophils 2.5 thou/uL (1.40-6.50); %Eosinophils 2.3 % (0.0-10.0); %Lymphocytes 34.8 % (21.0-51.0); %Monocytes 7.7 % (0.0-10.0); Hematocrit 41.6 % (42.0-52.0); Mean Platelet Volume 9.1 fL (7.4-10.4); Red Blood Cell (RBC) Count 4.32 mill/uL (4.70-6.10); White Blood Cell (WBC) Count 4.5 thou/uL (4.8-10.8)
[2017-03-03 20:33] LABS: ALT (SGPT) 24 U/L (8-55); AST (SGOT) 22 U/L (5-34); Alkaline Phosphatase 65 U/L (40-150); Anion Gap 14 mmol/L (10-20); BUN (Urea Nitrogen) 37 mg/dL (8.4-25.7); Bilirubin, Total 0.5 mg/dL (0.2-1.2); Calc. Creatinine Clearance 0 mL/min (70-130); Calcium 9.4 mg/dL (7.8-10.44); Carbon Dioxide 20 mmol/L (23-31); Chloride 109 mmol/L (98-107); Estimated GFR-MDRD 33; Protein, Total 8.1 g/dL (5.8-8.1)
[2017-03-03 20:37] LABS: Troponin I Less than 0.010 ng/mL (< 0.028)
--- NOTE | 2017-03-29 20:53 | EKG ---
Test Reason : HTN Blood Pressure : / mmHG Vent. Rate : 060 BPM Atrial Rate : 060 BPM P-R Int : 124 ms QRS Dur : 060 ms QT Int : 408 ms P-R-T Axes : 037 026 054 degrees QTc Int : 408 ms Poor data quality, interpretation may be adversely affected Normal sinus rhythm Normal ECG Confirmed by SOPHIE BRIONES, ROB ([id number]), make up editor ARTUR ROQUE ([id number]) on 03/29/2017 8:52:28 PM Referred By: Confirmed By:ROB BARRIOS MD
== END 2017-03-03 21:21 | disposition home or self-care (01) ==
LOC: ERS 19:04
DX: I12.9 Hypertensive chronic kidney disease with stage 1 through stage 4 chronic kidney disease, or unspecified chronic kidney disease (principal); N18.9 Chronic kidney disease, unspecified; E11.22 Type 2 diabetes mellitus with diabetic chronic kidney disease; Z79.84 Long term (current) use of oral hypoglycemic drugs; Z79.82 Long term (current) use of aspirin; Z79.899 Other long term (current) drug therapy
CPT/HCPCS: 80053; 82553; 84484; 85025; 93005

== ENCOUNTER 2017-03-31 08:55 | Outpatient (CLI) | payer OTHER ==
--- NOTE | 2017-03-31 10:07 | PRG ---
DATE OF SERVICE: 03/31/2017 HISTORY: Mr. Erwin Reardon is a very pleasant 81-year-old gentleman who presents to the Wound Cent er for evaluation of a wound of the right foot subsequent to amputation of the right second toe. The patient underwent the preceding procedure on 02/10/[address] Darci West. At the time of surge ry, Mr. Reardon also underwent wound VAC placement, negative pressure therapy was discontinued prior to the patient's discharge from [facility] and prior to being seen in the [facility], the patient had been receiving dressing changes of Silvercel for the wound of the right sec ond toe on a daily basis after cleansing and irrigation. Also, during the patient's hospital stay, Srinivasa Reardon underwent percutaneous revascularization of the right lower extremity on 02/11/[address] Richy Quinteros. PHYSICAL EXAMINATION: VITAL SIGNS: Temperature 97.5, pulse 57, respirations 19, blood pressure 178/86, Accu-Chek 104. EXTREMITIES: A wound of the right second toe is present which measures approximately 0.3 x 0.3 cm. The dimensions of the wound at the time of the patient's last visit were approximately 0.4 x 0.5 cm. Nonviable tissue associated with the wound was debrided with an excisional partial-thickness debride ment with the use of scissors and a curet. No serous or purulent drainage is associated with the wou nd. No cellulitis of the right foot is appreciated. No maceration of the skin of the periwound is n oted. A dorsalis pedis pulse is easily palpable on the right. No significant edema of the right abhinav t is present on exam today. ASSESSMENT AND PLAN: 1. Wound of right second toe subsequent to right second toe amputation on 02/10/2017. The wound has almost healed completely and dressing changes of Silvercel will be discontinued. The patient comple sheree Bactrim DS #20 one p.o. b.i.d. x10 days as previously prescribed. Cultures obtained on 7 revealed the growth of Enterobacter cloacae complex sensitive to Bactrim. Mr. Reardon will be disc harged from clinic today with followup on a p.r.n. basis. 2. Diabetes mellitus. The patient's Accu-Chek in clinic today is 104. The patient has been reminde d that for optimal wound healing, his blood glucoses should remain below 150. 3. Hypertension. 4. Peripheral vascular disease. The patient is status post percutaneous revascularization of the [facility] lower extremity by Dr. Richy Quinteros on 02/11/2017. 5. Chronic kidney disease stage 3.
[2017-03-31] MEDS ORDERED: Sodium Chloride 0.9% 15 ML NEB ONE (13:23)
[2017-03-31] MEDS ORDERED: Lidocaine 2% Jelly 5 ML TUBE ONE (13:23)
== END 2017-03-31 08:56 | disposition home or self-care (01) ==
LOC: WCC 08:55
PROVIDERS: ATTEND Family Medicine
DX: T81.89XD Other complications of procedures, not elsewhere classified, subsequent encounter (principal); I73.9 Peripheral vascular disease, unspecified; E11.22 Type 2 diabetes mellitus with diabetic chronic kidney disease; I12.9 Hypertensive chronic kidney disease with stage 1 through stage 4 chronic kidney disease, or unspecified chronic kidney disease; N18.3 Chronic kidney disease, stage 3 (moderate); Z89.421 Acquired absence of other right toe(s)
CPT/HCPCS: 97597; A4218

== ENCOUNTER 2018-08-04 18:10 | Inpatient (IN) | payer MEDICAID, SELFPAY ==
[2018-08-04] MEDS ORDERED: Piperacillin/Tazobactam 4.5 GM in Sodium Chloride 0.9% 100 ML IVPB SCH (19:30)
[2018-08-04] MEDS ORDERED: Vancomycin HCl 1 GM in Premix Bag 1 BAG IVPB SCH (19:30)
--- NOTE | 2018-08-04 20:28 | RAD ---
3 views left foot. HISTORY: Wound on bottom of left great toe. AP, lateral and oblique views left foot is obtained. Images demonstrate surgical hardware with plates and screws in the left ankle. Osteoarthritic changes seen in the tubulation of the lateral cuneiform and the base of the third meta tarsal. There is an area of gas seen in the distal aspect of the left great toe compatible with gas-forming o rganism and ulceration. IMPRESSION: Gas seen within the soft tissues left great toe.
[2018-08-04 20:51] LABS: #Lymphocytes 1.3 thou/uL (1.20-3.40); #Monocytes 0.7 thou/uL (0.11-0.59); #Neutrophils 3.9 thou/uL (1.40-6.50); %Basophils 0.5 % (0.0-1.0); %Eosinophils 0.2 % (0.0-10.0); %Lymphocytes 22.2 % (21.0-51.0); %Monocytes 12.1 % (0.0-10.0); Hemoglobin 12.1 g/dL (14.0-18.0); Mean Corpuscular HGB CONC 31.7 g/dL (32.0-36.0); Mean Corpuscular Hemoglobin 30.4 pg (27.0-31.0); Mean Corpuscular Volume 95.8 fL (78.0-98.0); Mean Platelet Volume 9.7 fL (7.4-10.4); Platelet Count 117 thou/uL (130-400); RBC Distribution Width 12.7 % (11.5-14.5)
[2018-08-04 21:07] LABS: ALT (SGPT) 13 U/L (8-55); AST (SGOT) 15 U/L (5-34); Albumin 3.8 g/dL (3.4-4.8); Alkaline Phosphatase 85 U/L (40-150); Anion Gap 14 mmol/L (10-20); BUN (Urea Nitrogen) 66 mg/dL (8.4-25.7); Bilirubin, Total 0.4 mg/dL (0.2-1.2); Calc. Creatinine Clearance 0 mL/min (70-130); Carbon Dioxide 19 mmol/L (23-31); Chloride 108 mmol/L (98-107); Estimated GFR-MDRD 21; Glucose 122 mg/dL (83-110); Potassium 5.5 mmol/L (3.5-5.1); Protein, Total 6.8 g/dL (5.8-8.1); Sodium 135 mmol/L (136-145)
[2018-08-05] MEDS ORDERED: Dextrose 5% in Water 1,000 ML IV PRN (00:01)
[2018-08-05] MEDS ORDERED: Dextrose 50% Abboject 50 ML SYRINGE SLOW IVP PRN (00:01)
[2018-08-05 00:16] VITALS: BMI 24.3
[2018-08-05] MEDS ORDERED: Sodium Chloride 0.9% 1,000 ML IV SCH (01:30)
[2018-08-05] MEDS: Piperacillin/Tazobactam 4.5 GM in Sodium Chloride 0.9% 100 ML IVPB SCH ×3 (04:29→20:56)
[2018-08-05] MEDS ORDERED: Piperacillin/Tazobactam 3.375 GM in Sodium Chloride 0.9% 100 ML IVPB SCH (05:00)
[2018-08-05] MEDS ORDERED: Dextrose 5 % And 0.9 % NaCl 1,000 ML IV SCH (06:15)
[2018-08-05] MEDS: Ferrous Sulfate 325 MG TAB PO SCH ×2 (07:45→20:55)
[2018-08-05] MEDS: Metoprolol Tartrate 25 MG TAB PO SCH ×2 (07:45→20:56)
--- NOTE | 2018-08-05 09:30 | HP ---
HISTORY OF PRESENT ILLNESS: An 82-year-old male patient with a diabetic left great toe ulceration. Plain x-rays revealed gas. This is an open wound. With gentle probing, Q tip extends into the phalanx. Plain x-rays revealed gas in soft tissues without any bony destruction. ALLERGIES: NONE. SOCIAL HISTORY: Tobacco, none. Alcohol, none. MEDICATIONS AT HOME: 1. Cozaar 50 mg a day. 2. Keflex t.i.d. 3. Lasix daily. 4. Captopril 25 mg a day. 5. Glipizide 5 mg a day. PAST SURGICAL HISTORY: 1. ORIF of left ankle. 2. Umbilical hernia repair with recurrence, has a large mass there without nausea or vomiting. 3. Right second toe amputation. PAST MEDICAL HISTORY: 1. Diabetes mellitus. 2. Hypertension. REVIEW OF SYSTEMS: Ten-point noncontributory. PHYSICAL EXAMINATION: VITAL SIGNS: 5 foot 3 inches, 137 pounds, 24 BMI, 98 degrees, 59, and 136/71. HEAD, EARS, EYES, NOSE, AND THROAT: Unremarkable. LUNGS: Clear to auscultation. CARDIAC: Regular rhythm without murmur or gallop. ABDOMEN: Soft. Incarcerated hernia mass about the umbilicus. I cannot reduce this. I think that I can feel a small defect. The abdomen is nondistended otherwise. No groin hernias. EXTREMITIES: Palpable posterior tibial pulse, left. Left great toe reveals a plantar ulcer at the tip, communicating on probing to the phalanx distal great toe. He has cellulitis to above the ankle, which has improved markings. LABORATORY DATA: White count 6 and hemoglobin 12. Sodium 135, potassium 5.5, creatinine 2.92, and BUN 66. ASSESSMENT AND PLAN: 1. Diabetic infection, left great toe with ulceration extending to the bone. This will not heal. He has palpable posterior tibial pulse. He has some hair on his toes. I would recommend amputation of left great toe through the proximal phalanx with healing by secondary intention. We will place a wound VAC. We will plan this today. We will keep him n.p.o. until after the procedure. 2. Chronic kidney disease. 3. Incarcerated umbilical hernia, recurrent. After the operation today, we will obtain a CAT scan tonight and consider repairing his hernia in this hospitalization later date. 4. Diabetes mellitus. 5. Hypertension. 6. Chronic kidney disease. Job ID: [id number]
[2018-08-05] MEDS: Dextrose 5 % And 0.9 % NaCl 1,000 ML IV SCH ×3 (09:33→21:01)
[2018-08-05 10:08] LABS: Anion Gap 10 mmol/L (10-20); BUN (Urea Nitrogen) 53 mg/dL (8.4-25.7); Calc. Creatinine Clearance 20 mL/min (70-130); Calcium 8.8 mg/dL (7.8-10.44); Carbon Dioxide 24 mmol/L (23-31); Chloride 110 mmol/L (98-107); Estimated GFR-MDRD 25; Glucose 116 mg/dL (83-110); Potassium 4.8 mmol/L (3.5-5.1); Sodium 139 mmol/L (136-145)
--- NOTE | 2018-08-05 10:21 | HP ---
PRIMARY CARE DOCTOR: CODE STATUS: Full code. TIME OF EVALUATION: 11:20 p.m. CHIEF COMPLAINT: Nonhealing ulcer of the left great toe. HISTORY OF PRESENT ILLNESS: This is an 82-year-old male patient with past medical history of diabetes, hypertension, history of right foot 2nd toe amputation, came to the hospital after having nonhealing ulcer of the left great toe. These symptoms have been present for the past week and has developed leg cellulitis of the left side, with redness. The patient has no significant pain, it might be secondary to neuropathy. He does have some toe infection, and decreased range of motion with unstable gait due to the ulcer. The symptoms were moderate, no clear triggers, no alleviating factors. REVIEW OF SYSTEMS: CONSTITUTIONAL: No fever, chills, or generalized weakness. RESPIRATORY: No cough, sputum production, or shortness of breath. CARDIOVASCULAR: No chest pain or palpitation. GASTROINTESTINAL: No nausea. No vomiting, diarrhea, or abdominal pain. SVP MONETIZATION: No dizziness, headache, or feeling lightheaded. GENITOURINARY: No burning on urination. EXTREMITIES: Left lower extremity swelling, redness, infection, decreased range of motion, nonhealing ulcer in the great toe. All other systems were reviewed and negative except for the findings mentioned above. PAST MEDICAL HISTORY: As mentioned in the HPI. SURGICAL HISTORY: Right foot 2nd toe amputation. PSYCHIATRIC HISTORY: No previous psych history. SOCIAL HISTORY: No alcohol, no drugs, no smoking history. FAMILY HISTORY: Father is diabetic. KNOWN ALLERGIES: No known drug allergies. REPORTED MEDICATIONS: 1. Furosemide. 2. Glipizide. 3. Losartan. 4. Captopril. 5. Cephalexin. PHYSICAL EXAMINATION: VITAL SIGNS: On presentation, blood pressure 171/74 with heart rate 75, respiratory rate was 16, temperature 98.6, oxygen saturation 100 on room air. GENERAL APPEARANCE: The patient is alert, oriented, not in acute distress. HEENT: Eyes; normal conjunctivae. Moist oral mucosa. Anicteric. No JVD. RESPIRATORY: Bilateral air entry. No rales. No wheezing. Symmetric expansion. CARDIOVASCULAR: Normal rate. Regular rhythm. No murmurs. No gallop. No edema. ABDOMEN: Soft. Normal bowel sounds. MUSCULOSKELETAL: Baseline range of motion and strength. No tenderness except for the left great toe that has a nonhealing ulcer in the plantar area with cellulitis extending proximally to the distal third of the left leg, with toe infection, redness, decreased range of motion, and dysesthesias due to neuropathy. SKIN: Warm and intact. No pallor. No rash. No redness except for the findings described in musculoskeletal. Peripheral pulses are present. Capillary refill seems to intact. NEURO: No evidence of any new focal weakness. Baseline speech. Cranial nerves seems to be intact. PSYCH: The patient has good mood. No anxiety. Optimal judgment. DIAGNOSTIC DATA: Foot x-ray was done. The patient has gas seen within the soft tissue, left great toe. Labs were reviewed. The patient has a white count of 6.0, hemoglobin 12.1, MCV 95.8, platelet count 117. Chemistry; sodium 135, potassium 5.5, chloride 108, carbon dioxide 19, anion gap 14, BUN 66, creatinine 2.92, the previous creatinine was 1.97, GFR 21, glucose 122. Lactic acid 2.0, calcium 9.0. Total bilirubin 0.4. LFTs were negative. ASSESSMENT AND PLAN: The patient will be placed in the hospital with following medical problems: 1. Left lower extremity cellulitis secondary to left great toe nonhealing ulcer. There is some gas formation as seen on the x-ray. Dr. West has been consulted for further recommendation. The patient will be placed on broad-spectrum antibiotics. We will follow cultures, we will adjust medicines as per sensitivity. 2. Hyponatremia, sodium 135, this is mild. We will give hydration, monitor level and adjust as needed. 3. Hyperkalemia, potassium 5.5, this is mild. The patient is in kidney failure. We will monitor and we will treat accordingly. 4. Acute on chronic kidney injury. The patient's creatinine is 2.9. The previous creatinine was 1.9. We will give some hydration. Job ID: [id number]
[2018-08-05] MEDS ORDERED: PROPOFOL 200 MG/20 ML VIAL ONE (15:44)
--- NOTE | 2018-08-05 16:37 | PRG ---
DATE OF SERVICE: 08/05/2018 SUBJECTIVE: The patient was seen and examined at the bedside. He does not have much complaints to offer. He does not have much pain in his foot. OBJECTIVE: VITAL SIGNS: Blood pressure is 136/71; pulse is 59; respirations 18; O2 saturation is 94% on room air; temperature is 98.0, maximal temperature is 98.0. HEENT: His head is atraumatic and normocephalic. Eyes are PERRLA. Sclerae are nonicteric. Oral mucosa is slightly dry. NECK: Supple. LUNGS: Clear. HEART: S1 and S2 normal. No S3. No S4. ABDOMEN: Soft. There is a nonincarcerated hernia in the midportion of the abdomen. No guarding. No masses. EXTREMITIES: No clubbing or cyanosis. Some mild edema with erythema and ulceration at the base of the great toe. NEUROLOGIC: He is alert and oriented x4. There are no any motor deficits. LABORATORY DATA: Labs showed sodium of 139, potassium 4.8, chloride 110, BUN is 53, creatinine 2.45, glucose 116, and calcium 8.8. Microbiology, two blood cultures, no growth. IMPRESSION: 1. Left lower extremity cellulitis secondary to left great toe nonhealing ulcer. The patient is scheduled for amputation since the ulceration extending to the bone and it looks like it is osteomyelitis and it will not heal without amputation. 2. Chronic kidney disease. 3. Nonincarcerated umbilical hernia. General surgeon is willing to operate on this after the amputation of the left great toe. 4. Diabetes mellitus. 5. Hypertension. PLAN: Plan is to continue his IV Zosyn. Continue Accu-Cheks a.c. and h.s. Amputation by Dr. West of the left great toe. The patient's kidney function improved with IV fluids and we will recheck his kidney function tomorrow morning and we will continue metoprolol, and aspirin tomorrow morning. Job ID: [id number]
[2018-08-05] MEDS ORDERED: Midazolam HCl 2 mg/2 ml Vial ONE (16:42)
[2018-08-05] MEDS ORDERED: Fentanyl 100 MCG/2 ML VIAL ONE (16:42)
[2018-08-05] MEDS ORDERED: PROPOFOL 20 ML ONE (16:48)
[2018-08-05] MEDS ORDERED: Acetaminophen 500 MG TAB PO PRN (18:03)
[2018-08-05 21:25] LABS: Vancomycin, Random 8.6 ug/mL (See Comment)
[2018-08-05] MEDS ORDERED: Vancomycin HCl 500 MG in Sodium Chloride 0.9% 100 ML IVPB SCH (23:00)
--- NOTE | 2018-08-06 00:58 | OP ---
DATE OF PROCEDURE: 08/05/2018 PREOPERATIVE DIAGNOSES: Diabetic infection with ulceration and cellulitis, left foot, palpable posterior tibial pulse, history of angiography with percutaneous transluminal angioplasty, right tibial vessels and popliteal vessel and arteriography of left iliac system without arteriosclerotic disease and chronic kidney disease. POSTOPERATIVE DIAGNOSES: Diabetic infection with ulceration and cellulitis, left foot, palpable posterior tibial pulse, history of angiography with percutaneous transluminal angioplasty, right tibial vessels and popliteal vessel and arteriography of left iliac system without arteriosclerotic disease and chronic kidney disease. PROCEDURE PERFORMED: Amputation of left great toe through the proximal phalanx. Wound Care Team arrived to place wound VAC. A good bleeding at the amputation stump. ANESTHESIA: TIVA. DESCRIPTION OF PROCEDURE: The patient was taken to the operating room where under intravenous sedation, left lower extremity was prepared with ChloraPrep and draped in routine fashion. Left great toe was amputated through the proximal phalanx with a fishmouth incision resecting the bone with the bone cutter and resecting it proximally with a rongeur. Connective tissue debrided sharply. Hemostasis gained with cautery. Wound irrigated. Culture submitted to Microbiology. Patient tolerated the procedure well. Wound Care Team arrived to place wound VAC. Job ID: [id number]
[2018-08-06] MEDS: Piperacillin/Tazobactam 4.5 GM in Sodium Chloride 0.9% 100 ML IVPB SCH ×3 (04:29→20:43)
[2018-08-06 05:28] LABS: Anion Gap 11 mmol/L (10-20); BUN (Urea Nitrogen) 46 mg/dL (8.4-25.7); Calc. Creatinine Clearance 21 mL/min (70-130); Calcium 8.5 mg/dL (7.8-10.44); Carbon Dioxide 22 mmol/L (23-31); Chloride 111 mmol/L (98-107); Estimated GFR-MDRD 27; Glucose 152 mg/dL (83-110); Potassium 4.8 mmol/L (3.5-5.1); Sodium 139 mmol/L (136-145)
[2018-08-06] MEDS: traMADol HCl 50 MG TAB PO PRN (06:17)
[2018-08-06] MEDS ORDERED: PARoxetine 20 MG TAB ONE (08:51)
--- NOTE | 2018-08-06 08:59 | CT ---
CT OF THE ABDOMEN AND PELVIS WITHOUT IV CONTRAST INDICATION: Large umbilical hernia COMPARISON: None FINDINGS: The lack of IV contrast limits evaluation of the solid organs of the abdomen and pelvis. ABDOMEN: Lung bases: There is airspace consolidation the right lower lobe with more prominent subsegmental vol ume loss in the left lower lobe. There is contrast within the distal esophagus may reflect reflux or dysmotility. Liver: The unopacified liver is unremarkable. Gallbladder: Normal appearing. Pancreas: Normal. Adrenal glands: Normal. Spleen: Normal. Kidneys: Normal. Retroperitoneum of the upper abdomen: There are moderate calcifications involving the abdominal aorta . No lymphadenopathy is evident. Additional findings: There is a large mouth umbilicus hernia containing a prominent amount of omental fat. The axial dimensions of the umbilical hernia measures 4.3 cm on image 49 of series 2. Pelvis: Small and large bowel: There is mild amount of retained stool within the colon. There are numerous sc attered colonic diverticula. Small bowel is of normal caliber. There is a normal appendix in the right lower quadrant of the abdomen. Bladder: Normal. Rectal and perirectal soft tissues:Normal. Reproductive structures: Normal. Free fluid in pelvis: No free fluid is evident. Lymphadenopathy pelvis: No lymphadenopathy is evident. Osseous structures: There is a 2.9 cm lytic lesion involving the right femoral neck with osteolysis i nvolving the anterior cortex of the right femoral neck on image 80 of series 2. An additional aggressive appearing lytic lesion is seen involving the left pubic root measuring 1.7 cm. There is an additional lytic lesion involving the anterior aspect of the T11 vertebral body. There is diffuse osteopenia. There is scattered degenerative and osteoarthritic changes. IMPRESSION: 1. Large mouthed umbilical hernia containing omental fat 2. Aggressive lytic lesions involving the right femoral neck, left pubic root and T11 vertebral body is suspicious for metastatic disease or myeloma. Orthopedic consultation and hematology oncology consultation is recommended. The lesions involving the right femoral neck and left pubic root are at risk for pathologic fracture. Findings concerning this abnormality was called to Dr. West at 8:45 AM on August 06, 2018. 3. Right lower lobe consolidation with bilateral lower lobe subsegmental atelectasis. Recommend corre lation with the clinical exam for any symptoms and signs of pneumonia. Two-view chest radiograph may be helpful. There is contrast within the distal esophagus which may reflect reflux or esophageal dysmotility. A component of aspiration pneumonitis cannot be excluded. Consideration for speech therapy consultation may be helpful.
[2018-08-06] MEDS: Aspirin 81 mg Enteric Coated Tablet PO SCH (09:40)
[2018-08-06] MEDS: Metoprolol Tartrate 25 MG TAB PO SCH ×2 (09:40→20:43)
[2018-08-06] MEDS: Ferrous Sulfate 325 MG TAB PO SCH ×2 (09:40→20:43)
[2018-08-06] MEDS ORDERED: CEFAZOLIN 2 GM in Premix Bag 1 BAG IVPB SCH (11:15)
[2018-08-06 11:24] LABS: #Lymphocytes 1.1 thou/uL (1.20-3.40); #Monocytes 0.5 thou/uL (0.11-0.59); #Neutrophils 3.8 thou/uL (1.40-6.50); %Basophils 0.3 % (0.0-1.0); %Eosinophils 0.4 % (0.0-10.0); %Lymphocytes 20.6 % (21.0-51.0); %Monocytes 9.5 % (0.0-10.0); %Neutrophils 69.3 % (42.0-75.0); Hemoglobin 12.8 g/dL (14.0-18.0); Mean Corpuscular HGB CONC 32.4 g/dL (32.0-36.0); Mean Corpuscular Hemoglobin 30.9 pg (27.0-31.0); Mean Corpuscular Volume 95.2 fL (78.0-98.0); Mean Platelet Volume 9.9 fL (7.4-10.4); Platelet Count 107 thou/uL (130-400); RBC Distribution Width 12.6 % (11.5-14.5); Red Blood Cell (RBC) Count 4.14 mill/uL (4.70-6.10); White Blood Cell (WBC) Count 5.5 thou/uL (4.8-10.8)
--- NOTE | 2018-08-06 11:54 | RAD ---
Chest PA and lateral: HISTORY: Follow-up abnormal abdomen CT scan. FINDINGS: Nodular fullness in the right infrahilar region with parenchymal changes extending into the posterior right lower lobe. Given findings on CT this certainly could represent a right infrahilar mass with associated atelectasis and/or pneumonitis. Recommend follow-up PET scan for further assessment. The l eft lung is clear. Atherosclerosis of the aorta. No cardiomegaly. IMPRESSION: Abnormal somewhat nodular parenchymal density in the right infrahilar region with changes extending i n the posterior right lower lobe possibly a mass with some associated partial atelectasis. Consider follow up PET scan for further assessment.
--- NOTE | 2018-08-06 12:27 | CON ---
DATE OF CONSULTATION: This is Hugo Mosher PA-C dictating a report for Daniel Hernandez MD. HISTORY OF PRESENT ILLNESS: We were asked by Dr. West to see the patient. The patient was admitted to the hospital with an infected gangrenous toe and left great toe. He had also had a history of right second toe amputation. His daughter is in the room helping interpret, but the gentleman is resting in bed in no acute distress. Wound Care came in and looked at the wound. He is moving his feet well. We were asked to see the patient because he does have multiple bony lesions, one of them being in the right femoral neck, one just little superior to the left acetabulum, and one at the T11 vertebra. Daughter and I talked about this. She understands the lesions and we talked about surgery with biopsy to stabilize that hip before it does break and she has an understanding of this, but once we talk about surgery tomorrow or in the near future, we will need to have an intelligence officer basic, so that we have a clear understanding and the patient also. PAST MEDICAL HISTORY: Positive for some diabetes, some hypertension, and cholesterol. PAST SURGICAL HISTORY: Right second toe amputation. PSYCHIATRIC HISTORY: None. SOCIAL HISTORY: Lives with family. No alcohol, nicotine, or drug products. He is retired from [employer]. FAMILY HISTORY: For this visit is noncontributory, but father was a diabetic. ALLERGIES: NONE. MEDICATIONS: 1. Lasix. 2. Glipizide. 3. Losartan. 4. Captopril. 5. Cephalexin. REVIEW OF SYSTEMS: The patient is very happy, pleasant. Denies any shortness of breath or chest pain. He is even wiggling his toes well after his recent surgery and appears to have no pain. Rest of review of systems negative. PHYSICAL EXAMINATION: GENERAL: Well-nourished, well-developed male, resting in bed, in room 4437, in no acute distress. Daughter is helping interpret. HEENT: Normal exam. Face symmetric. Tongue midline. His speech is clear, oriented. NECK: Supple. Trachea midline. EXTREMITIES: Upper extremities; equal size, shape, symmetry, normal bulk, and tone. Lower extremities; left lower extremity is bandaged foot. Right lower extremity; missing second digit, but moving both lower extremities well. Pulses are equal. Sensations are intact. IMAGING STUDIES: Show a right femoral neck lesion just above the left acetabulum and T11 lesion. ASSESSMENT: Multiple bony lesions, with concern of right hip fracture if the patient was to walk on this. PLAN: Daughter states father has been walking around. We asked him again per daughter if he has any pains, rocked his hip and moved his hip around. He has no issues whatsoever with pain. He can draw knee up, turn it in and out. No hip pain whatsoever. I informed her that she would probably need to see the oncologist, which should be coming today. There will be some further imaging studies, which we will review once they are completed. I have spoken to Dr. Hernandez about the case. I have also just generally gone over a stabilization procedure to the hip where we would put intramedullary nail in and secure the hip and take those bone sample and send them for pathology, which the patient understands. We will plan on keeping him n.p.o. after midnight. Once all the imaging studies are completed, cover those again and talk to the family with an appropriate intelligence officer basic. Job ID: [id number]
--- NOTE | 2018-08-06 12:32 | RAD ---
Exam: Left femur 2 views: HISTORY: Follow-up CT scan for lytic bone lesions COMPARISON: 08/06/2018 CT There is some decreased bone density in the medial acetabular region and medial ischiopubic ramus cor responding to the bone lesion on CT. No evidence for femoral focal bone lesion or fracture or dislocation. Prominent vascular calcification. IMPRESSION: No evidence for femoral fracture or focal femoral bone lesion. Focal area of decreased bone density i n the medial ischiopubic ramus corresponding to bone lesion on CT.
--- NOTE | 2018-08-06 12:34 | RAD ---
Exam: AP pelvis one view: HISTORY: Follow-up CT scan bone lesions FINDINGS: 3.5 cm diameter lytic bone lesion in the right femoral neck. Small focus of decreased bone density in the medial left superior ischiopubic ramus, both of these correspond to abnormal findings on CT. No evidence for other significant process. IMPRESSION: Right femoral neck and left ischiopubic ramus bone lesions corresponding to the abnormalities on prio r CT.
--- NOTE | 2018-08-06 12:46 | RAD ---
Exam: Right femur 2 views: HISTORY: Correlate with abnormal findings on CT FINDINGS: 3.5 cm diameter lytic bone lesion in the right femoral neck base. No other acute process. Prominent v ascular calcifications. IMPRESSION: Intraosseous bone lesion in the base of the right femoral neck corresponding to abnormal finding on C T.
--- NOTE | 2018-08-06 14:59 | PRG ---
DATE OF SERVICE: 08/06/2018 SUBJECTIVE: The patient is seen and examined at the bedside. Dr. West called me with findings on the CT he ordered. Apparently, there is some report mentioning about some lesion on the patient's right femoral neck, also in the left pubic root and the T11 vertebral body, which all suspicious for metastatic disease or myeloma. OBJECTIVE: VITAL SIGNS: Blood pressure is 152/74, pulse is 62, temperature is 98.2, respiratory rate is 16, O2 saturation is 96% on room air. HEENT: His head is atraumatic and normocephalic. Eyes are PERRLA. Sclerae are nonicteric. Oral mucosa is moist. NECK: Supple. LUNGS: Clear. HEART: S1 and S2 normal. ABDOMEN: Soft, nontender. There is a big non-incarcerated hernia in the mid center, easily reducible. EXTREMITIES: status post great toe amputation through the proximal phalanx. NEUROLOGICAL: He is alert and oriented x4. There are no any motor deficits. LABORATORY DATA: Labs showed white count of 5.5, hemoglobin 12.8, hematocrit 39.4, platelet count is 107. Sodium of 139, potassium 4.8, chloride 111, CO2 of 22, BUN 46, creatinine 2.35. Glycemia is ranging from 82 to 143, calcium 8.5. Microbiology, left great toe specimen is growing gram-negative rods, moderate growth. Gram stain showed few wbc's, few epithelial cells, and few gram-positive cocci in pairs and clusters. Blood cultures are negative. IMAGING STUDIES: CT of the abdomen and pelvis showed large umbilical hernia containing omental fat along with aggressive lytic lesions involving the right femoral neck, left pubic root and T11 vertebral body, which all suspicious for metastatic disease or multiple myeloma. IMPRESSION: 1. Left lower extremity cellulitis and left great toe osteomyelitis, status post amputation. 2. Right hip pelvis and T11 lesion suspicious for metastatic disease. 3. Non-incarcerated umbilical hernia. 4. Chronic kidney disease. 5. Diabetes mellitus. 6. Hypertension. PLAN: General surgeon consulted oncologist and orthopedic surgeon secondary to new findings on the CT of the abdomen and pelvis. We will continue Zosyn. We will stop vancomycin since there is only gram-negative pathogen in the specimen from the left great toe. We will continue his pain medication, which is tramadol . Job ID: [id number]
[2018-08-06] MEDS: Dextrose 5 % And 0.9 % NaCl 1,000 ML IV SCH ×2 (17:02→18:38)
[2018-08-06 17:08] LABS: Bilirubin Negative (Negative); Blood, Urine Negative (Negative); Clarity CLEAR (Clear); Glucose, Urine (Dipstick) Negative (Negative); Leukocyte Trace (Negative); Nitrite Negative (Negative); Protein, Urine (Dipstick) Trace mg/dL (Neg-Trace); Specific Gravity, Urine 1.016 (1.002-1.036); pH, Urine 5.5 (5.0-9.0)
[2018-08-06 17:11] LABS: Bacteria/HPF None Seen HPF (None Seen); Hyaline Casts/LPF 0-3 HYALINE CAST LPF (0-3 Hyaline); Pathc Cast-AUWi Flag 0.13 (0-2.49); Squamous Epithelial 0-3 HPF (0-3)
--- NOTE | 2018-08-06 22:43 | CON ---
DATE OF CONSULTATION: 08/06/2018 TIME SPENT: This encompassed 70 minutes of time, of that time, greater than 50% was spent with the patient and/or the patient's unit in the hospital. REASON FOR CONSULTATION: Potential lung mass. HISTORY OF PRESENT ILLNESS: The patient is an 82-year-old [place] male, who has been in the [place] for about 2 years. He came to the hospital with diabetic left great toe ulceration. This infection was thought secondary to diabetes mellitus. As part of the workup, he has had imaging, which has showed a right hilar lung lesion. He also has a lytic lesion on his right hip. [facility] and may have pinning of the right hip tomorrow and possible biopsy of the lesion. PAST MEDICAL HISTORY: 1. Diabetes mellitus. 2. Hypertension. PAST SURGICAL HISTORY: 1. ORIF of left ankle. 2. Umbilical hernia repair. 3. Right second toe amputation. MEDICATIONS: Prior to admission; 1. Cozaar. 2. Keflex. 3. Lasix. 4. Captopril. 5. Glipizide. SOCIAL HISTORY: Former smoker, quit about four years ago. Does not consume alcohol. ALLERGIES: NONE. REVIEW OF SYSTEMS: A 10-point review of systems is otherwise negative. PHYSICAL EXAMINATION: VITAL SIGNS: Temperature 98.2, pulse 60, respirations 16, O2 saturation 96%, and blood pressure 150/74. GENERAL: He is awake, alert, in no distress. HEENT: Unremarkable. NECK: No JVD. LUNGS: Clear without wheezing or rhonchi. CARDIAC: S1 and S2, regular. ABDOMEN: Soft. He has a midline protruding hernia, which is easily reducible. EXTREMITIES: He has point tenderness along his right hip. No cyanosis. No edema. LABORATORY DATA: White blood cell count 5.5, hematocrit 39.4, and platelet count 107. Sodium 139, potassium 4.8, chloride 111, CO2 of 23, BUN 46, creatinine 2.4, and glucose 152. I reviewed his CT in detail. ASSESSMENT: Overall situation suggest lung mass with metastasis. PLAN: If the hip is going to be operated on tomorrow, then I think we can get a biopsy from there and see what it shows. If it does not confirm metastatic lung cancer, then consider further workup of the lung mass next week. Job ID: [id number]
[2018-08-07] MEDS: Dextrose 5 % And 0.9 % NaCl 1,000 ML IV SCH ×3 (04:38→14:46)
[2018-08-07] MEDS: Piperacillin/Tazobactam 4.5 GM in Sodium Chloride 0.9% 100 ML IVPB SCH ×2 (04:41→13:29)
--- NOTE | 2018-08-07 08:25 | PRG ---
DATE OF SERVICE: 08/07/2018 Mr. Reardon is reconsidered and has decided not to go through hip surgery at the current time. He does not want further workup of the lung mass. I discussed this in detail with the patient and his daughter at bedside. That being said, I do not really have anything further to offer the patient and would suggest comfort care at home. Job ID: [id number]
[2018-08-07] MEDS ORDERED: Clopidogrel Bisulfate 75 MG TAB ONE (08:48)
[2018-08-07] MEDS: Metoprolol Tartrate 25 MG TAB PO SCH ×3 (08:54→21:00)
[2018-08-07] MEDS: Aspirin 81 mg Enteric Coated Tablet PO SCH (08:54)
[2018-08-07] MEDS: Ferrous Sulfate 325 MG TAB PO SCH ×2 (08:55→21:00)
--- NOTE | 2018-08-07 10:42 | CON ---
DATE OF CONSULTATION: 08/07/2018 BRIEF HISTORY OF PRESENT ILLNESS: The patient is an 82-year-old [place]cu[place] gentleman, who speaks [place], with daughter at bedside. Today, he is examined in his hospital room with Dr. Cavazos and nursing present. He basically was admitted to the hospital for workup for a hernia, and during the course of this workup, a CT scan of the abdomen and pelvis was obtained that showed lytic lesions in the right femoral neck and left pubic root region. These lesions were concerning for possible metastatic disease. Further workup then included a CT scan of the chest that did show a right hilar lung lesion. Given the size of the right femoral neck lesion, it was felt that he was at risk for a possible pathologic fracture. It was also felt that at the time we could obtain soft tissue biopsy from the lytic lesion in the femoral neck to assist with obtaining a definitive diagnosis of the lung lesion as it was felt to be likely metastatic disease. Today, we present to the patient's room to have further discussions with family regarding this proposed surgical procedure of biopsy and stabilization of a possible impending femoral neck fracture. PAST MEDICAL HISTORY: Remarkable for diabetes and hypertension. PAST SURGICAL HISTORY: Left ankle ORIF, umbilical hernia repair, and amputation of second toe secondary to gangrene from his diabetic disease. MEDICATIONS: Prior to admission include; 1. Cozaar. 2. Keflex. 3. Lasix. 4. Glipizide. ALLERGIES: NONE KNOWN. SOCIAL HISTORY: He is a former smoker. PHYSICAL EXAMINATION: VITAL SIGNS: Temperature 98.2, heart rate of 60, respiratory rate of 16, and O2 saturations 96%. HEENT: Atraumatic and normocephalic. LUNGS: Remarkable for no labored breath sounds. EXTREMITIES: Remarkable for bilateral lower extremities are neurovascularly intact. He does have some mild tenderness at the right hip. Distal neurovascular is intact, however. LABORATORY DATA: White count of 5.5, hematocrit of 39.4, and 107,000 platelets. IMAGING STUDIES: X-rays: Plain x-rays of both femurs remarkable for lytic lesion of right femoral neck that is of significant size as well as left pubic root fracture. X-ray AP pelvis confirms the same, and CT scan from August 06 also confirms these lytic lesions in the pelvis, with CT of the chest showing a right lower lobe lesion. ASSESSMENT: Mr. Reardon is an 82-year-old gentleman with lytic lesions in right proximal femur and pelvis with a lung mass, which is now suggestive for metastatic disease to bones. Today, I had a long discussion with the patient and his daughter regarding the potential benefits of obtaining a biopsy, so we can definitively know the source of the tumor and hopefully help with outlining reasonable treatment plans. I have also discussed with family that there is risk for pathologic fracture, given the size of this tumor and that at the same time as doing the biopsy, we would propose stabilizing this femoral neck in hopes of minimizing the risk for pathologic fracture. Today, we had a very lengthy discussion, and I believe all questions were answered. At this time, the family would like to discuss these options among themselves. They would like to hold off on any surgical intervention at this time. We will follow the patient while he was in the hospital, and if any further questions arise, be happy to address these in a timely fashion. Job ID: [id number]
[2018-08-07] MEDS: HumaLOG 300 UNITS/3 ML VIAL SC PRN (12:23)
--- NOTE | 2018-08-07 17:20 | CON ---
DATE OF CONSULTATION: REASON FOR CONSULT: Lung mass with bony lesions. HISTORY OF PRESENT ILLNESS: Mr. Reardon is an 82-year-old male, who speaks Turkmen only. 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 He presented to the emergency room with a nonhealing ulcer of his left great toe. He was noted to have an umbilical hernia, so an abdominal CT was performed after his surgery for toe amputation. The CT scan showed right lower lobe consolidation. There was a 2.9 cm lytic lesion in the right femoral neck with osteolysis involving the anterior cortex. There was another lytic lesion in the left pubic root and one in the T11 vertebral body. Orthopedics was consulted for possible pinning of his right hip. Dr. Goodwin was consulted for his lung mass. Remote history of smoking. The patient has no history of alcohol use. He denies any pain at this time. PAST MEDICAL HISTORY: 1. Diabetes. 2. Hypertension. PAST SURGICAL HISTORY: 1. Toe amputation. 2. Umbilical hernia repair. 3. Ankle surgery. ALLERGIES: NO KNOWN DRUG ALLERGIES. HOME MEDICATIONS: 1. Lasix 20 mg daily. 2. Cozaar 50 mg daily. 3. Capoten 25 mg daily. 4. Glipizide 5 mg daily. FAMILY HISTORY: Diabetes. SOCIAL HISTORY: No alcohol, tobacco, or illicit drug use. He does have a remote history of smoking. REVIEW OF SYSTEMS: A 10-point review of systems is negative. PHYSICAL EXAMINATION: VITAL SIGNS: Temperature is 98.1, pulse is 57, respiratory rate 16, and BP is 161/76. He is 100% on room air. GENERAL: This is a well-developed, well-nourished male, in no acute distress. HEENT: Normocephalic and atraumatic. Pupils are equal and reactive to light. NECK: Supple. CV: Regular rate and rhythm. LUNGS: Clear anterior. ABDOMEN: Soft and nontender. Bowel sounds are positive. EXTREMITIES: He has a dressing to his left lower extremity. SKIN: No rash. HEMATOLOGIC: No petechiae or purpura. NEUROLOGIC: Nonfocal. PSYCH: The patient is alert and oriented. PERTINENT LABS AND X-RAYS: Current WBCs are 5.5, hemoglobin 12.8, hematocrit 39.5, and platelet count is 107,000. Sodium is 139, potassium 4.8, chloride 111, CO2 is 22, BUN is 46, creatinine 2.35, uric acid is 4.4, calcium 8.5, bilirubin 0.4, AST is 15, ALT is 13, alkaline phosphatase is 85, LDH is 111, serum total protein is 6.8, albumin 3.8, and globulin 3.0. Immuno globulins are normal. Radiology per HPI. ASSESSMENT: 1. Lung mass with lytic lesions. 2. Large right femoral neck lesion. 3. Toe amputation for diabetic ulcer. DISCUSSION: Again culture link was used to discuss situation with patient. Recommend biopsy during right hip pinning. We discussed that he is at increased risk for hip fracture and pinning would reduce his risk. Biopsy hopefully would be diagnostic from that area and then we could have a discussion about how to treat. The patient would prefer to wait for his children before he makes a decision. We will follow up. Thank you for the consult. Job ID: [id number]
--- NOTE | 2018-08-07 18:39 | PRG ---
DATE OF SERVICE: 08/07/2018 Erwin Reardon is doing well. He denies any pain in his foot. The wound VAC was changed today and his great toe is healing well granulating. Cultures reveal Proteus mirabilis sensitive to most everything. The patient has a large lung mass on CAT scan, has evidence of metastatic disease. Oncology consultation is pending. At this point, he has an impending pathological fracture in his right femoral neck, but has refused intervention as discussed Dr. Hernandez. The patient has refused further workup of his lung mass and Dr. Goodwin signed off to see p.r.n. As far as the amputation site of his great toe, the patient could be placed on oral antibiotics for 10 days. Discharged home with a wound VAC and follow up in my office in 2 to 3 weeks. I will be glad to see him in W[facility] Care if he has an appointment there. At this point, I will see him as needed this hospitalization. Please call if necessary. Job ID: [id number]
--- NOTE | 2018-08-07 19:23 | PDOC.PN ---
- Subjective Encounter Start Date: 08/07/18 Encounter Start Time: 19:21 Subjective: feels OK. maltese translation jaret used and all Qs answered -: Pt unsure if he wants any more surgery done except may be for hernia -: defers to children.none at bedside - Objective MAR Reviewed: Yes Vital Signs & Weight: Vital Signs (12 hours) Temp Pulse Resp BP BP Pulse Ox 08/07/18 16:09 98.2 F 55 L 16 179/83 H 99 08/07/18 11:20 98.1 F 57 L 16 161/76 H 100 08/07/18 08:55 100 08/07/18 08:54 56 L 168/70 H 08/07/18 08:00 98.7 F 56 L 18 168/70 H 94 L Weight Admit Weight 137 lb 2.04 oz Weight 137 lb 2.04 oz I&O: 08/06/18 08/07/18 08/08/18 06:59 06:59 06:59 Intake Total 6128 921 9736 Balance 0513 347 9851 Result Diagrams: 08/06/18 10:59 08/06/18 04:25 Additional Labs: Accuchecks 08/07/18 08/07/18 08/07/18 16:14 11:21 05:54 POC Glucose 97 185 H 151 H 08/06/18 20:26 POC Glucose 121 H Microbiology 08/05/18 17:31 Toe - Left Bacterial Culture - Preliminary 08/05/18 17:31 Toe - Left Proteus mirabilis 08/04/18 20:12 Venous blood - Right Hand Blood Culture - Preliminary NO GROWTH AT 48 HOURS 08/04/18 19:51 Venous blood - Right Hand Blood Culture - Preliminary NO GROWTH AT 48 HOURS Laboratory Tests 03/03/17 08/04/18 08/05/18 19:52 19:51 09:04 Creatinine 1.97 H 2.92 H 2.45 H 08/06/18 04:25 Creatinine 2.35 H Phys Exam - Physical Examination Constitutional: NAD HEENT: PERRLA, moist MMs, sclera anicteric, oral pharynx no lesions Neck: no nodes, no JVD, supple, full ROM Respiratory: no wheezing, no rales, no rhonchi, clear to auscultation bilateral Cardiovascular: RRR, no significant murmur, no rub Gastrointestinal: soft, non-tender, no distention, positive bowel sounds Musculoskeletal: no edema, pulses present Left toe wound vac Neurological: non-focal, normal sensation, moves all 4 limbs Psychiatric: normal affect, A&O x 3 Skin: no rash Dx/Plan (1) Toe osteomyelitis, left Code(s): M86.9 - OSTEOMYELITIS, UNSPECIFIED Status: Acute Comment: s/p amputation and on wound Vac.Proteus in culture which is pansensitive. cont zosyn (2) Lytic bone lesion of femur Code(s): M89.9 - DISORDER OF BONE, UNSPECIFIED Status: Acute Comment: needs Femoral Pin stabilization but pt unsure if he wants it done or not.Appreciate Ortho input.cont supportive care High risk of fracture and fall (3) Lung mass Code(s): R91.8 - OTHER NONSPECIFIC ABNORMAL FINDING OF LUNG FIELD Status: Chronic Comment: Likley Carcinoma. Oncology recs requested. Need Tissue sample but pt refuses surgical procedures for now (4) CKD (chronic kidney disease) stage 3, GFR 30-59 ml/min Code(s): N18.3 - CHRONIC KIDNEY DISEASE, STAGE 3 (MODERATE) Status: Chronic (5) DM type 2 (diabetes mellitus, type 2) Status: Chronic Qualifiers: Diabetes mellitus intermediate insulin use: without intermediate use Diabetes mellitus complication status: with kidney complications Diabetes mellitus complication detail: with chronic kidney disease Chronic kidney disease stage : stage 3 (moderate) Qualified Code(s): E11.22 - Type 2 diabetes mellitus with diabetic chronic kidney disease; N18.3 - Chronic kidney disease, stage 3 ( moderate); N18.3 - Chronic kidney disease, stage 3 (moderate) Comment: cont ISS accuchecks (6) PVD (peripheral vascular disease) Code(s): I73.9 - PERIPHERAL VASCULAR DISEASE, UNSPECIFIED Status: Chronic Comment: s/p angioplasty (7) HTN (hypertension) Code(s): I10 - ESSENTIAL (PRIMARY) HYPERTENSION Status: Chronic Comment: stable. cont captopril and metoprolol - Plan continue antibiotics, PT/OT, respiratory therapy, incentive spirometry, out of bed/ambulate, DVT proph w/SCDs supportive post-op care and antibiotic -: appreciate palliative care .follwo final decison if pt wants aggressive Rx -: HD stable. * . Review of Systems - Review of Systems Constitutional: weakness, malaise. negative: fever, chills, sweats, other ENT: negative: Ear Pain, Ear Discharge, Nose Pain, Nose Discharge, Nose Congestion, Mouth Pain, Mouth Swelling, Throat Pain, Throat Swelling, Other Respiratory: negative: Cough, Dry, Shortness of Breath, Hemoptysis, SOB with Excertion, Pleuritic Pain, Sputum, Wheezing Cardiovascular: negative: chest pain, palpitations, orthopnea, paroxysmal nocturnal dyspnea, edema, light headedness, other Gastrointestinal: negative: Nausea, Vomiting, Abdominal Pain, Diarrhea, Constipation, Melena, Hematochezia, Other Genitourinary: negative: Dysuria, Frequency, Incontinence, Hematuria, Retention , Other Musculoskeletal: negative: Neck Pain, Shoulder Pain, Arm Pain, Back Pain, Hand Pain, Leg Pain, Foot Pain, Other Neurological: negative: Weakness, Numbness, Incoordination, Change in Speech, Confusion, Seizures, Other - Medications/Allergies Allergies/Adverse Reactions: Allergies Allergy/AdvReac Type Severity Reaction Status Date / Time No Known Drug Allergies Allergy Verified 08/05/18 00:28 Medications: Current Medications Acetaminophen (Tylenol) 1,000 mg PO Q6H PRN PRN Reason: Moderate to Severe Pain (6-10) Last Admin: 08/05/18 21:01 Dose: 1,000 mg Amoxicillin/Clavulanate Potassium (Augmentin) 500 mg PO Q12HR [facility] Aspirin (Ecotrin) 81 mg PO DAILY [facility] Last Admin: 08/07/18 08:54 Dose: 81 mg Captopril (Capoten) 25 mg PO DAILY [facility] Last Admin: 08/07/18 08:54 Dose: 25 mg Dextrose/Water (Dextrose 50%) 25 gm SLOW IVP PRN PRN PRN Reason: Hypoglycemia Ferrous Sulfate (Feosol) 325 mg PO BID [facility] Last Admin: 08/07/18 08:55 Dose: 325 mg Glucagon (Glucagon) 1 mg IM PRN PRN PRN Reason: Hypoglycemia Dextrose/Water (D5w) 1,000 mls @ 0 mls/hr IV .Q0M PRN PRN Reason: Hypoglycemia Dextrose/Sodium Chloride (D5 0.9% Ns) 1,000 mls @ 110 mls/hr IV .Q9H6M [facility] Last Admin: 08/07/18 14:46 Dose: 1,000 mls Insulin Human Lispro (Humalog) 0 units SC .MILD SLIDING SCALE PRN PRN Reason: Mild Correctional Scale Last Admin: 08/07/18 12:23 Dose: 2 unit Metoprolol Tartrate (Lopressor) 25 mg PO BID [facility] Last Admin: 08/07/18 08:59 Dose: Not Given Sodium Chloride (Flush - Normal Saline) 10 ml IVF Q12HR [facility] Last Admin: 08/07/18 08:55 Dose: 10 ml Sodium Chloride (Flush - Normal Saline) 10 ml IVF PRN PRN PRN Reason: Saline Flush Tramadol HCl (Ultram) 50 mg PO Q12H PRN PRN Reason: Pain Last Admin: 08/06/18 06:17 Dose: 50 mg
[2018-08-07] MEDS: Amoxicillin/Potassium Clav 500 MG TAB PO SCH (21:00)
[2018-08-08] MEDS: Dextrose 5 % And 0.9 % NaCl 1,000 ML IV SCH ×3 (00:36→16:22)
[2018-08-08] MEDS: Ferrous Sulfate 325 MG TAB PO SCH ×2 (08:53→21:13)
[2018-08-08] MEDS: Amoxicillin/Potassium Clav 500 MG TAB PO SCH ×2 (08:53→21:13)
[2018-08-08] MEDS: Aspirin 81 mg Enteric Coated Tablet PO SCH (08:53)
[2018-08-08] MEDS: Metoprolol Tartrate 25 MG TAB PO SCH ×2 (08:53→21:13)
[2018-08-08] MEDS: traMADol HCl 50 MG TAB PO PRN (10:56)
--- NOTE | 2018-08-08 12:23 | PDOC.PN ---
- Subjective Encounter Start Date: 08/08/18 Encounter Start Time: 12:22 Patient seen and examined - Objective Vital Signs & Weight: Vital Signs (12 hours) Temp Pulse Resp BP BP Pulse Ox 08/08/18 11:34 98.3 F 60 16 190/83 H 95 08/08/18 08:53 64 178/80 H 08/08/18 08:00 98.2 F 64 17 178/80 H 93 L Weight Admit Weight 137 lb 2.04 oz Weight 137 lb 2.04 oz I&O: 08/07/18 08/08/18 08/09/18 06:59 06:59 06:59 Intake Total 991 2400 Balance 991 2400 Result Diagrams: 08/06/18 10:59 08/06/18 04:25 Additional Labs: Accuchecks 08/08/18 08/08/18 08/07/18 11:33 05:34 20:38 POC Glucose 127 H 149 H 134 H 08/07/18 16:14 POC Glucose 97 Phys Exam - Physical Examination Constitutional: NAD HEENT: PERRLA, moist MMs Neck: no nodes, no JVD, supple Respiratory: no wheezing, no rales, no rhonchi Cardiovascular: RRR, no rub systolic murmur Gastrointestinal: soft, non-tender, no distention Musculoskeletal: no edema, pulses present Dx/Plan (1) Lytic bone lesion of femur Code(s): M89.9 - DISORDER OF BONE, UNSPECIFIED Status: Acute Comment: needs Femoral Pin stabilization but pt unsure if he wants it done or not.Appreciate Ortho input.cont supportive care High risk of fracture and fall (2) HTN (hypertension) Code(s): I10 - ESSENTIAL (PRIMARY) HYPERTENSION Status: Chronic Comment: stable. cont captopril and metoprolol (3) Lung mass Code(s): R91.8 - OTHER NONSPECIFIC ABNORMAL FINDING OF LUNG FIELD Status: Chronic Comment: Likley Carcinoma. Oncology recs requested. 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-way use Diabetes mellitus complication status: with kidney complications Diabetes mellitus complication detail: with chronic kidney disease Chronic kidney disease stage : stage 3 (moderate) Qualified Code(s): E11.22 - Type 2 diabetes mellitus with diabetic chronic kidney disease; N18.3 - Chronic kidney disease, stage 3 ( moderate); N18.3 - Chronic kidney disease, stage 3 (moderate) Comment: cont ISS accrico (7) PVD (peripheral vascular disease) Code(s): I73.9 - PERIPHERAL VASCULAR DISEASE, UNSPECIFIED Status: Chronic Comment: s/p angioplasty - Plan * cont current plan of care * bx for tmrw * labs in AM
[2018-08-08] MEDS: cloNIDine 0.1 MG TAB PO PRN (12:57)
[2018-08-08] MEDS: HumaLOG 300 UNITS/3 ML VIAL SC PRN (16:19)
[2018-08-09] MEDS: Dextrose 5 % And 0.9 % NaCl 1,000 ML IV SCH ×3 (04:20→20:38)
[2018-08-09] MEDS: Metoprolol Tartrate 25 MG TAB PO SCH ×2 (04:21→20:37)
[2018-08-09] MEDS ORDERED: CEFAZOLIN 2 GM in Premix Bag 1 BAG IVPB SCH (08:00)
[2018-08-09] MEDS: Ferrous Sulfate 325 MG TAB PO SCH ×2 (08:26→20:37)
[2018-08-09] MEDS: Amoxicillin/Potassium Clav 500 MG TAB PO SCH ×2 (08:27→20:37)
[2018-08-09] MEDS: Aspirin 81 mg Enteric Coated Tablet PO SCH (08:28)
--- NOTE | 2018-08-09 09:27 | PDOC.PN ---
- Subjective Encounter Start Date: 08/09/18 Encounter Start Time: 09:26 Pt seen and examined - Objective Vital Signs & Weight: Vital Signs (12 hours) Temp Pulse Resp BP BP Pulse Ox 08/09/18 08:27 57 L 196/78 H 08/09/18 07:58 98.3 F 57 L 17 181/73 H 99 08/09/18 04:27 97.9 F 63 18 184/81 H 98 Weight Admit Weight 137 lb 2.04 oz Weight 137 lb 2.04 oz I&O: 08/08/18 08/09/18 08/10/18 06:59 06:59 06:59 Intake Total 2400 1359 Output Total 2 2 Balance 2400 1357 -2 Result Diagrams: 08/06/18 10:59 08/06/18 04:25 Additional Labs: Accuchecks 08/09/18 08/08/18 08/08/18 06:24 20:42 16:19 POC Glucose 122 H 110 180 H 08/08/18 11:33 POC Glucose 127 H Phys Exam - Physical Examination Constitutional: NAD HEENT: PERRLA, moist MMs Neck: no nodes, no JVD Respiratory: no wheezing, no rales Cardiovascular: RRR, no significant murmur, no rub Gastrointestinal: soft, non-tender, no distention, positive bowel sounds Musculoskeletal: no edema, pulses present Dx/Plan (1) Lytic bone lesion of femur Code(s): M89.9 - DISORDER OF BONE, UNSPECIFIED Status: Acute Comment: needs Femoral Pin stabilization but pt unsure if he wants it done or not.Appreciate Ortho input.cont supportive care High risk of fracture and fall (2) HTN (hypertension) Code(s): I10 - ESSENTIAL (PRIMARY) HYPERTENSION Status: Chronic Comment: stable. cont captopril and metoprolol (3) Lung mass Code(s): R91.8 - OTHER NONSPECIFIC ABNORMAL FINDING OF LUNG FIELD Status: Chronic Comment: Likley Carcinoma. Oncology recs requested. Need Tissue sample but pt refuses surgical procedures for now (4) 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 Status: Acute Comment: s/p amputation of right 2nd toe (5) CKD (chronic kidney disease) stage 3, GFR 30-59 ml/min Code(s): N18.3 - CHRONIC KIDNEY DISEASE, STAGE 3 (MODERATE) Status: Chronic (6) DM type 2 (diabetes mellitus, type 2) Status: Chronic Qualifiers: Diabetes mellitus intermediate insulin use: without superintendent marine oil terminal use Diabetes mellitus complication status: with kidney complications Diabetes mellitus complication detail: with chronic kidney disease Chronic kidney disease stage : stage 3 (moderate) Qualified Code(s): E11.22 - Type 2 diabetes mellitus with diabetic chronic kidney disease; N18.3 - Chronic kidney disease, stage 3 ( moderate); N18.3 - Chronic kidney disease, stage 3 (moderate) Comment: cont ISS accucheckray (7) PVD (peripheral vascular disease) Code(s): I73.9 - PERIPHERAL VASCULAR DISEASE, UNSPECIFIED Status: Chronic Comment: s/p angioplasty - Plan * bone bx planned for today * labs stable * vitals stable * cont current plan of care for now * will await bx results * case and plan d/w patient at length, he understood and agreed with this plan
[2018-08-09] MEDS: cloNIDine 0.1 MG TAB PO PRN (10:40)
[2018-08-09] MEDS: hydrALAZINE 20 MG/ML VIAL SLOW IVP PRN (13:45)
[2018-08-10] MEDS: Dextrose 5 % And 0.9 % NaCl 1,000 ML IV SCH ×3 (01:58→20:33)
[2018-08-10] MEDS: Ferrous Sulfate 325 MG TAB PO SCH ×2 (07:59→20:30)
[2018-08-10] MEDS: Metoprolol Tartrate 25 MG TAB PO SCH ×2 (08:00→20:30)
[2018-08-10] MEDS: Aspirin 81 mg Enteric Coated Tablet PO SCH (08:00)
[2018-08-10] MEDS: Amoxicillin/Potassium Clav 500 MG TAB PO SCH ×2 (08:00→20:30)
--- NOTE | 2018-08-10 09:45 | PDOC.PN ---
- Subjective Encounter Start Date: 08/10/18 Encounter Start Time: 13:15 Subjective: Patient without complaint today. No pain. No SOB. No appetite but -: not having N/V/abd pain. - Objective MAR Reviewed: Yes Vital Signs & Weight: Vital Signs (12 hours) Pulse Resp BP BP Pulse Ox 08/10/18 08:00 64 20 174/74 H 98 08/10/18 07:59 64 174/74 H Weight Admit Weight 137 lb 2.04 oz Weight 137 lb 2.04 oz I&O: 08/09/18 08/10/18 08/11/18 06:59 06:59 06:59 Intake Total 1359 1720 Output Total 2 2 Balance 1357 1718 Result Diagrams: 08/06/18 10:59 08/06/18 04:25 Additional Labs: Accuchecks 08/10/18 08/09/18 08/09/18 05:34 20:35 16:27 POC Glucose 136 H 192 H 109 08/09/18 12:14 POC Glucose 140 H Phys Exam - Physical Examination Constitutional: NAD HEENT: moist MMs Respiratory: no wheezing, no rales, no rhonchi Cardiovascular: RRR Gastrointestinal: soft, non-tender, positive bowel sounds left great toe amputation site with wound vac in place Psychiatric: A&O x 3 Dx/Plan (1) Lytic bone lesion of femur Code(s): M89.9 - DISORDER OF BONE, UNSPECIFIED Status: Acute Comment: needs Femoral Pin stabilization but pt and family refused.Appreciate Ortho input.cont supportive care High risk of fracture and fall (2) Toe osteomyelitis, left Code(s): M86.9 - OSTEOMYELITIS, UNSPECIFIED Status: Acute Comment: s/p amputation and on wound Vac.Proteus in culture which is pansensitive. On Augmentin (3) HTN (hypertension) Code(s): I10 - ESSENTIAL (PRIMARY) HYPERTENSION Status: Chronic Comment: stable. cont captopril and metoprolol (4) Lung mass Code(s): R91.8 - OTHER NONSPECIFIC ABNORMAL FINDING OF LUNG FIELD Status: Chronic Comment: Likley Carcinoma. Appreciate oncology assistance. Need Tissue sample but pt refuses surgical procedures. (5) Anemia, macrocytic Code(s): D53.9 - NUTRITIONAL ANEMIA, UNSPECIFIED Status: Chronic (6) CKD (chronic kidney disease) stage 3, GFR 30-59 ml/min Code(s): N18.3 - CHRONIC KIDNEY DISEASE, STAGE 3 (MODERATE) Status: Chronic (7) DM type 2 (diabetes mellitus, type 2) Status: Chronic Qualifiers: Diabetes mellitus mcc insulin use: without security officer supervisor use Diabetes mellitus complication status: with kidney complications Diabetes mellitus complication detail: with chronic kidney disease Chronic kidney disease stage : stage 3 (moderate) Qualified Code(s): E11.22 - Type 2 diabetes mellitus with diabetic chronic kidney disease; N18.3 - Chronic kidney disease, stage 3 ( moderate) Comment: cont ISS accuchecks (8) PVD (peripheral vascular disease) Code(s): I73.9 - PERIPHERAL VASCULAR DISEASE, UNSPECIFIED Status: Chronic Comment: s/p angioplasty - Plan cont current plan of care, continue antibiotics, PT/OT will d/c home once outpatient wound vac ready, likely tomorrow * . - Discharge Day Encounter end time: 13:25
[2018-08-10] MEDS: cloNIDine 0.1 MG TAB PO PRN (16:58)
[2018-08-10] MEDS: hydrALAZINE 20 MG/ML VIAL SLOW IVP PRN (20:34)
[2018-08-11] MEDS: Dextrose 5 % And 0.9 % NaCl 1,000 ML IV SCH ×2 (05:54→14:46)
[2018-08-11] MEDS: HumaLOG 300 UNITS/3 ML VIAL SC PRN (06:11)
[2018-08-11] MEDS: Metoprolol Tartrate 25 MG TAB PO SCH ×2 (08:16→20:07)
[2018-08-11] MEDS: Amoxicillin/Potassium Clav 500 MG TAB PO SCH ×2 (08:16→20:07)
[2018-08-11] MEDS: Ferrous Sulfate 325 MG TAB PO SCH ×2 (08:16→20:07)
[2018-08-11] MEDS: Aspirin 81 mg Enteric Coated Tablet PO SCH (08:16)
--- NOTE | 2018-08-11 09:31 | PDOC.PN ---
- Subjective Encounter Start Date: 08/11/18 Encounter Start Time: 11:30 Subjective: Patient without complaint. No pain. No fever. Eating -: better. - Objective MAR Reviewed: Yes Vital Signs & Weight: Vital Signs (12 hours) Temp Pulse Resp BP BP BP Pulse Ox 08/11/18 08:16 60 150/71 H 08/11/18 07:35 98.2 F 60 16 150/71 H 100 08/11/18 06:26 172/75 H 08/11/18 00:00 137/65 Weight Admit Weight 137 lb 2.04 oz Weight 137 lb 2.04 oz I&O: 08/10/18 08/11/18 08/12/18 06:59 06:59 06:59 Intake Total 1720 3823 Output Total 2 1 Balance 1718 3822 Result Diagrams: 08/06/18 10:59 08/06/18 04:25 Additional Labs: Accuchecks 08/11/18 08/10/18 08/10/18 06:04 20:23 17:04 POC Glucose 150 H 133 H 146 H 08/10/18 12:11 POC Glucose 172 H Phys Exam - Physical Examination Constitutional: NAD HEENT: moist MMs Respiratory: no wheezing, no rales, no rhonchi Cardiovascular: RRR Gastrointestinal: soft, positive bowel sounds left great toe amputation site with wound vac in place Psychiatric: normal affect, A&O x 3 Dx/Plan (1) Lytic bone lesion of femur Code(s): M89.9 - DISORDER OF BONE, UNSPECIFIED Status: Acute Comment: needs Femoral Pin stabilization but pt and family refused.Appreciate Ortho input.cont supportive care High risk of fracture and fall (2) Toe osteomyelitis, left Code(s): M86.9 - OSTEOMYELITIS, UNSPECIFIED Status: Acute Comment: s/p amputation and on wound Vac.Proteus in culture which is pansensitive. On Augmentin until 08/18/18 (3) HTN (hypertension) Code(s): I10 - ESSENTIAL (PRIMARY) HYPERTENSION Status: Chronic Comment: stable. cont captopril and metoprolol (4) Lung mass Code(s): R91.8 - OTHER NONSPECIFIC ABNORMAL FINDING OF LUNG FIELD Status: Chronic Comment: Likley Carcinoma. Appreciate oncology assistance. Need Tissue sample but pt refuses surgical procedures. (5) Anemia, macrocytic Code(s): D53.9 - NUTRITIONAL ANEMIA, UNSPECIFIED Status: Chronic (6) CKD (chronic kidney disease) stage 3, GFR 30-59 ml/min Code(s): N18.3 - CHRONIC KIDNEY DISEASE, STAGE 3 (MODERATE) Status: Chronic (7) DM type 2 (diabetes mellitus, type 2) Status: Chronic Qualifiers: Diabetes mellitus half-way insulin use: without termite treater helper use Diabetes mellitus complication status: with kidney complications Diabetes mellitus complication detail: with chronic kidney disease Chronic kidney disease stage : stage 3 (moderate) Qualified Code(s): E11.22 - Type 2 diabetes mellitus with diabetic chronic kidney disease; N18.3 - Chronic kidney disease, stage 3 ( moderate) Comment: cont ISS accuchecks (8) PVD (peripheral vascular disease) Code(s): I73.9 - PERIPHERAL VASCULAR DISEASE, UNSPECIFIED Status: Chronic Comment: s/p angioplasty - Plan cont current plan of care, continue antibiotics home once outpatient mel wound vac arranged * . - Discharge Day Encounter end time: 11:45
[2018-08-11 18:07] LABS: Albumin 3.1 g/dL (2.9-4.4); Alpha 1 0.3 g/dL (0.0-0.4); Beta 0.6 g/dL (0.7-1.3); Gamma 1.1 g/dL (0.4-1.8); M-Spike Not Observed g/dL (Not Observed)
[2018-08-11] MEDS: hydrALAZINE 20 MG/ML VIAL SLOW IVP PRN (20:16)
[2018-08-12] MEDS: Dextrose 5 % And 0.9 % NaCl 1,000 ML IV SCH ×3 (00:13→13:07)
[2018-08-12] MEDS: HumaLOG 300 UNITS/3 ML VIAL SC PRN (05:23)
[2018-08-12 06:39] LABS: #Lymphocytes 1.2 thou/uL (1.20-3.40); #Monocytes 0.5 thou/uL (0.11-0.59); #Neutrophils 2.8 thou/uL (1.40-6.50); %Eosinophils 0.6 % (0.0-10.0); %Lymphocytes 25.6 % (21.0-51.0); %Monocytes 11.8 % (0.0-10.0); %Neutrophils 60.9 % (42.0-75.0); Mean Corpuscular HGB CONC 31.8 g/dL (32.0-36.0); Mean Corpuscular Hemoglobin 30.4 pg (27.0-31.0); Mean Corpuscular Volume 95.6 fL (78.0-98.0); Mean Platelet Volume 9.6 fL (7.4-10.4); Platelet Count 99 thou/uL (130-400); RBC Distribution Width 12.6 % (11.5-14.5); Red Blood Cell (RBC) Count 3.62 mill/uL (4.70-6.10); White Blood Cell (WBC) Count 4.5 thou/uL (4.8-10.8)
[2018-08-12 06:50] LABS: Anion Gap 8 mmol/L (10-20); BUN (Urea Nitrogen) 18 mg/dL (8.4-25.7); Calc. Creatinine Clearance 33 mL/min (70-130); Calcium 7.7 mg/dL (7.8-10.44); Carbon Dioxide 20 mmol/L (23-31); Chloride 113 mmol/L (98-107); Estimated GFR-MDRD 46; Glucose 145 mg/dL (83-110); Potassium 4.1 mmol/L (3.5-5.1); Sodium 137 mmol/L (136-145)
[2018-08-12] MEDS: Aspirin 81 mg Enteric Coated Tablet PO SCH (07:58)
[2018-08-12] MEDS: Ferrous Sulfate 325 MG TAB PO SCH (07:58)
[2018-08-12] MEDS: Amoxicillin/Potassium Clav 500 MG TAB PO SCH (07:58)
[2018-08-12] MEDS: Metoprolol Tartrate 25 MG TAB PO SCH (07:58)
--- NOTE | 2018-08-12 12:00 | PDOC.PN ---
- Subjective Encounter Start Date: 08/12/18 Encounter Start Time: 13:45 Subjective: Patient without complaints. Getting up with PT and family. No fever. -: No pain. Eating well. Eager to go home once have wound vac. Still refusing -: surgery or cancer workup, but still wants to be full code. - Objective MAR Reviewed: Yes Vital Signs & Weight: Vital Signs (12 hours) Temp Pulse Resp BP BP Pulse Ox 08/12/18 08:00 95 08/12/18 07:59 98.7 F 65 18 162/66 H 95 08/12/18 07:58 63 166/74 H 08/12/18 04:54 166/74 H 08/12/18 01:07 157/70 H Weight Admit Weight 137 lb 2.04 oz Weight 137 lb 2.04 oz I&O: 08/11/18 08/12/18 08/13/18 06:59 06:59 06:59 Intake Total 3823 4350 Output Total 1 Balance 3822 4350 Result Diagrams: 08/12/18 06:14 08/12/18 06:13 Additional Labs: Accuchecks 08/12/18 08/12/18 08/11/18 11:29 04:11 20:33 POC Glucose 146 H 168 H 165 H 08/11/18 16:50 POC Glucose 120 H Phys Exam - Physical Examination Constitutional: NAD HEENT: moist MMs Respiratory: no wheezing, no rales, no rhonchi Cardiovascular: RRR, no significant murmur Gastrointestinal: soft, positive bowel sounds wound vac to left great toe amp site, c/d/i Psychiatric: normal affect, A&O x 3 Dx/Plan (1) Lytic bone lesion of femur Code(s): M89.9 - DISORDER OF BONE, UNSPECIFIED Status: Acute Comment: needs Femoral Pin stabilization but pt and family refused.Appreciate Ortho input.cont supportive care High risk of fracture and fall (2) Toe osteomyelitis, left Code(s): M86.9 - OSTEOMYELITIS, UNSPECIFIED Status: Acute Comment: s/p amputation and on wound Vac.Proteus in culture which is pansensitive. On Augmentin until 08/18/18 (3) HTN (hypertension) Code(s): I10 - ESSENTIAL (PRIMARY) HYPERTENSION Status: Chronic Comment: stable. cont captopril and metoprolol (4) Lung mass Code(s): R91.8 - OTHER NONSPECIFIC ABNORMAL FINDING OF LUNG FIELD Status: Chronic Comment: Likley Carcinoma. Appreciate oncology assistance. Need Tissue sample but pt refuses surgical procedures. (5) Anemia, macrocytic Code(s): D53.9 - NUTRITIONAL ANEMIA, UNSPECIFIED Status: Chronic (6) CKD (chronic kidney disease) stage 3, GFR 30-59 ml/min Code(s): N18.3 - CHRONIC KIDNEY DISEASE, STAGE 3 (MODERATE) Status: Chronic (7) DM type 2 (diabetes mellitus, type 2) Status: Chronic Qualifiers: Diabetes mellitus fdc insulin use: without paver layer use Diabetes mellitus complication status: with kidney complications Diabetes mellitus complication detail: with chronic kidney disease Chronic kidney disease stage : stage 3 (moderate) Qualified Code(s): E11.22 - Type 2 diabetes mellitus with diabetic chronic kidney disease; N18.3 - Chronic kidney disease, stage 3 ( moderate) Comment: cont ISS accuchecks (8) PVD (peripheral vascular disease) Code(s): I73.9 - PERIPHERAL VASCULAR DISEASE, UNSPECIFIED Status: Chronic Comment: s/p angioplasty - Plan cont current plan of care, continue antibiotics, PT/OT home when O/P wound vac approved * . - Discharge Day Encounter end time: 14:15
[2018-08-12] MEDS: hydrALAZINE 20 MG/ML VIAL SLOW IVP PRN (15:57)
[2018-08-12 16:57] VITALS: BP 156/77; TEMP 98.3
--- NOTE | 2018-08-13 02:02 | DIS ---
DATE OF ADMISSION: 08/04/2018 DATE OF DISCHARGE: 08/12/2018 PRIMARY CARE PHYSICIAN: Jessica Linder PA-C REASON FOR ADMISSION: Left lower extremity cellulitis with left great toe nonhealing ulcer. DIAGNOSES AT DISCHARGE: 1. Left toe osteomyelitis, status post amputation. 2. 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 3. Lung mass, likely carcinoma. 4. Hypertension. 5. Macrocytic anemia. 6. Chronic kidney disease, stage 3. 7. Diabetes mellitus type 2. 8. Peripheral vascular disease. PROCEDURES: 1. X-ray of the left foot showing gas within the soft tissues of the left great toe. 2. CT of the abdomen and pelvis without contrast showing large mouth umbilical hernia and an aggressive lytic lesion involving the right femoral neck, left pubic root and T11 vertebral body suspicious for metastatic disease or myeloma, lesions involving the right femoral neck and left pubic root, at risk for pathological fracture. 3. Amputation of left great toe to the proximal phalanx with wound VAC placement. 4. Chest x-ray showing a nodular parenchymal density in the right infrahilar region with changes extending to the posterior right lower lobe, possibly a mass. 5. X-ray of the femur showing intraosseous bone lesion in the base of the right femoral neck. 6. Pelvic x-ray showing right femoral neck and left ischial pubic ramus bone lesions. CONSULTATIONS: 1. General Surgery, Dr. West. 2. Orthopedic Surgery, Hugo Mosher, for Dr. Hernandez. 3. Pulmonology, Dr. Goodwin. 4. Heme/Oncology, Melissa Scherer for Dr. Brewster. SUMMARY OF HOSPITAL COURSE: This is an 82-year-old male with past medical history of diabetes, hypertension, chronic renal insufficiency, and right foot 2nd toe amputation. He presented with a left great toe nonhealing ulcer, present for a week with cellulitis of the leg. The patient had an x-ray consistent with osteomyelitis. Dr. West was consulted and he did an amputation of the toe. The patient was noted to have a non-incarcerated large umbilical hernia. In preparation for possibly operating on this as well, Dr. West did do a CT scan of the abdomen with above results. Further x-rays were done to elucidate likely metastatic disease. The patient did have evidence for the lung primary as well as the metastatic disease to the bones and at risk for pathological fractures in the hip and pelvis. Consultants saw the patient. Initially, the patient was interested in getting a pin in his hip to stabilize it as well as a biopsy done. However, he eventually refused all surgical interventions outside of the amputation of the toe, and was explained to him through a jig inspector and explained to his family that if he has cancer and does not do any treatment for it, then it will just progress and will likely kill him. The patient expressed understanding. He had discussions also with Palliative Care. At this point, he is reporting that he is still full code though his family states they do not think he really understands the questions. The patient was ambulating with help of family in the hospital and is wanting to go home. We did arrange outpatient wound care and a [facility] wound VAC, and the patient is being discharged home today. DISCHARGE MANAGEMENT: Location: Discharged home. Activity: As tolerated. Diet: Diabetic low-sodium diet. Outpatient wound care: With wound VAC changes. Followup: Follow up with Dr. West in 3 to 4 weeks with wound care on Friday. DISCHARGE MEDICATIONS: 1. Augmentin 500 mg twice a day for another 7 days. 2. Aspirin 81 mg daily. 3. Captopril 25 mg daily. 4. Ferrous sulfate 325 mg twice a day. 5. Metoprolol 25 mg twice a day. 6. Furosemide 20 mg daily. 7. Glipizide 5 mg daily. Arranging the details of this discharge took 32 minutes. Job ID: [id number]
== END 2018-08-12 16:50 | disposition home or self-care (01) | DRG 617 ==
LOC: ERS 18:10 → T4-B 23:38
PROVIDERS: ADMIT Hospitalist; ATTEND Hospitalist
PROC: 0Y6Q0Z1 Detachment at Left 1st Toe, High, Open Approach (ICD-10-PCS; principal; 2018-08-06)
DX: E11.621 Type 2 diabetes mellitus with foot ulcer (principal); E87.1 Hypo-osmolality and hyponatremia; L97.526 Non-pressure chronic ulcer of other part of left foot with bone involvement without evidence of necrosis; M86.172 Other acute osteomyelitis, left ankle and foot; C34.90 Malignant neoplasm of unspecified part of unspecified bronchus or lung; C79.51 Secondary malignant neoplasm of bone; B96.4 Proteus (mirabilis) (morganii) as the cause of diseases classified elsewhere; L03.032 Cellulitis of left toe; N17.9 Acute kidney failure, unspecified; E87.5 Hyperkalemia; I12.9 Hypertensive chronic kidney disease with stage 1 through stage 4 chronic kidney disease, or unspecified chronic kidney disease; E11.22 Type 2 diabetes mellitus with diabetic chronic kidney disease; K42.9 Umbilical hernia without obstruction or gangrene; E78.00 Pure hypercholesterolemia, unspecified; E11.69 Type 2 diabetes mellitus with other specified complication; N18.3 Chronic kidney disease, stage 3 (moderate); E11.51 Type 2 diabetes mellitus with diabetic peripheral angiopathy without gangrene; D63.1 Anemia in chronic kidney disease; Z79.84 Long term (current) use of oral hypoglycemic drugs; Z79.899 Other long term (current) drug therapy
CPT/HCPCS: 36415; 36416; 71046; 72170; 74176; 80048; 80053; 80202; 81003; 81015; 82232; 83605; 83615; 84165; 84550; 85025; 87040; 87070; 87076; 87077; 87186; 87205; 88305; 88311; 96365; 96367; J0360; J0690; J2250; J2543; J2704; J3010; J3370; J3490

== ENCOUNTER 2018-08-14 10:15 | Emergency (ER) | payer SELFPAY ==
--- NOTE | 2018-08-14 11:19 | RAD ---
RIGHT ANKLE 3 VIEWS: Date: 08/14/18 HISTORY: Pain right ankle. FINDINGS: Mild soft tissue swelling is present. There is no evidence of fracture. Mild degenerative change seen at the ankle with minimal spurring from the medial malleolus. Small spur from the plantar calcaneus is noted. IMPRESSION: No acute fracture identified. POS: [facility]
== END 2018-08-14 11:37 | disposition home or self-care (01) ==
LOC: ERS 10:15
DX: S93.401A Sprain of unspecified ligament of right ankle, initial encounter (principal); I10 Essential (primary) hypertension; E11.9 Type 2 diabetes mellitus without complications; Z79.82 Long term (current) use of aspirin; Z79.84 Long term (current) use of oral hypoglycemic drugs; Z79.899 Other long term (current) drug therapy; X50.9XXA Other and unspecified overexertion or strenuous movements or postures, initial encounter

== ENCOUNTER 2018-08-14 13:16 | Outpatient (CLI) | payer SELFPAY ==
[~2018-08-14 13:16] MED LIST: Sodium Chloride 0.9% 15 ML NEB ONE
== END 2018-08-14 13:17 | disposition home or self-care (01) ==
LOC: WCC 13:16
PROVIDERS: ATTEND Family Medicine
DX: A48.0 Gas gangrene (principal)
CPT/HCPCS: A4218

== ENCOUNTER 2018-08-14 14:34 | Inpatient (IN) | payer SELFPAY ==
[2018-08-14] MEDS ORDERED: HYDROcodone/Acetaminophen 5/325 mg Tablet ONE (15:24)
[2018-08-14 15:29] LABS: #Lymphocytes 0.9 thou/uL (1.20-3.40); #Monocytes 1.1 thou/uL (0.11-0.59); #Neutrophils 6.2 thou/uL (1.40-6.50); %Eosinophils 0.1 % (0.0-10.0); %Lymphocytes 10.7 % (21.0-51.0); %Monocytes 13.5 % (0.0-10.0); %Neutrophils 75.6 % (42.0-75.0); Mean Corpuscular HGB CONC 32.3 g/dL (32.0-36.0); Mean Corpuscular Hemoglobin 30.5 pg (27.0-31.0); Mean Corpuscular Volume 94.5 fL (78.0-98.0); Mean Platelet Volume 9.8 fL (7.4-10.4); Platelet Count 118 thou/uL (130-400); RBC Distribution Width 12.6 % (11.5-14.5); White Blood Cell (WBC) Count 8.2 thou/uL (4.8-10.8)
[2018-08-14 15:49] LABS: ALT (SGPT) 19 U/L (8-55); AST (SGOT) 22 U/L (5-34); Albumin 3.7 g/dL (3.4-4.8); Alkaline Phosphatase 87 U/L (40-150); Anion Gap 16 mmol/L (10-20); BUN (Urea Nitrogen) 29 mg/dL (8.4-25.7); Bilirubin, Total 0.6 mg/dL (0.2-1.2); Calc. Creatinine Clearance 0 mL/min (70-130); Calcium 9.5 mg/dL (7.8-10.44); Carbon Dioxide 19 mmol/L (23-31); Chloride 107 mmol/L (98-107); Estimated GFR-MDRD 36; Globulin 3.3 g/dL (2.4-3.5); Glucose 120 mg/dL (83-110); Potassium 4.5 mmol/L (3.5-5.1); Sodium 137 mmol/L (136-145)
--- NOTE | 2018-08-14 16:36 | RAD ---
TWO VIEWS RIGHT HIP: 08/14/18 INDICATION: History of right hip pain. FINDINGS: There is an angulated basicervical right femoral neck fracture. No additional fracture is grossly inocente dent. IMPRESSION: Right basicervical femoral neck fracture. POS: [facility]
[2018-08-14] MEDS ORDERED: Labetalol HCl 100 MG/20 ML VIAL ONE (17:07)
--- NOTE | 2018-08-14 17:16 | RAD ---
Exam: Chest one view HISTORY:Emergency exam, pain Comparison: 02/10/2017 FINDINGS: Lungs: Patchy bibasilar densities Cardiac silhouette:Enlarged Pulmonary vessels: Normal Pleural Spaces: Bilateral pleural-based densities at each inferior hemithorax Pneumothorax: None Osseous abnormalities: None of acuity. IMPRESSION: Enlarged cardiac silhouette. Bibasilar patchy densities which may relate to pleural fluid with adjacent atelectasis and/or scarrin g. Consider follow-up with 2 view chest.
[2018-08-14] MEDS ORDERED: Ondansetron ODT 4 MG TAB PO PRN (18:13)
[2018-08-14] MEDS ORDERED: Dextrose 50% Abboject 50 ML SYRINGE SLOW IVP PRN (18:13)
[2018-08-14] MEDS ORDERED: hydrALAZINE 20 MG/ML VIAL SLOW IVP PRN (18:13)
[2018-08-14] MEDS ORDERED: Ondansetron PF 4 MG/2 ML Vial IVP PRN (18:13)
[2018-08-14] MEDS ORDERED: Dextrose 5% in Water 1,000 ML IV PRN (18:13)
[2018-08-14] MEDS ORDERED: Morphine 2 MG/ML SYRINGE SLOW IVP PRN (18:21)
[2018-08-14] MEDS ORDERED: traMADol HCl 50 MG TAB PO PRN (18:23)
[2018-08-14] MEDS: Sodium Chloride 0.9% 1,000 ML IV SCH (21:16)
[2018-08-14] MEDS: Senokot S 8.6-50 MG TAB PO SCH (21:17)
[2018-08-14] MEDS: Metoprolol Tartrate 25 MG TAB PO SCH (21:17)
[2018-08-14] MEDS ORDERED: Labetalol HCl 100 MG/20 ML VIAL SLOW IVP PRN (21:42)
[2018-08-14] MEDS ORDERED: Insulin Regular 300 UNITS/3 ML VIAL SC PRN (21:43)
[2018-08-14] MEDS: Acetaminophen 500 MG TAB PO SCH (21:57)
[2018-08-14] MEDS: traMADol HCl 50 MG TAB PO SCH (21:57)
[2018-08-14] MEDS ORDERED: Amlodipine 5 MG TAB PO SCH (22:00)
--- NOTE | 2018-08-14 22:19 | CON ---
DATE OF CONSULTATION: 08/14/2018 CHIEF COMPLAINT: Right hip pain. HISTORY OF PRESENT ILLNESS: The patient is an 82-year-old male with recent hospitalization for left toe osteomyelitis, status post amputation, presented to the hospital with above complaints. He was discharged 2 days ago. Wound VAC was placed on the left toe osteomyelitis site. His workup was also consistent with lytic lesion in the right femoral neck as well as in the left pubic root and T11 vertebral body suspicious for metastatic disease or myeloma. He was evaluated by Oncology, however, declined biopsy. He also has a history of non-incarcerated large umbilical hernia, which has been present for years per the patient report. Please note, the patient is Monegasque-speaking only and history is limited. No family at the bedside. He denies any chest pain, shortness of breath, or palpitations. His blood pressure was elevated in the ER. He received several doses of labetalol. PAST MEDICAL HISTORY: 1. Recent left great toe osteomyelitis, status post amputation on 08/05/2018. He has a wound VAC in place. 2. Recent diagnosis of lytic lesions in the femur, likely malignancy. 3. Hypertension. 4. Diabetes mellitus type 2. 5. Chronic kidney disease stage 3. 6. Peripheral vascular disease. 7. Macrocytic anemia. 8. Lung mass suspicious for malignancy. PAST SURGICAL HISTORY: 1. Recent left great toe amputation. 2. Left ankle surgery. 3. Umbilical hernia repair with subsequent recurrence. 4. Right second toe amputation. ALLERGIES: NO KNOWN DRUG ALLERGIES. CURRENT HOME MEDICATIONS: The patient is unable to recall any of his home medications. SOCIAL HISTORY: The patient currently lives at home with his family. He is full code, makes his own decision with the help of his family. No alcohol, tobacco, or drug use. FAMILY HISTORY: Diabetes runs in his family. REVIEW OF SYSTEMS: Cannot be reliably obtained from the patient due to language barrier. No family at the bedside. PHYSICAL EXAMINATION: VITAL SIGNS: In the emergency room, showed temperature 98, respirations 16, pulse 64, blood pressure 220/101 with O2 saturation 96% on room air. GENERAL: An 82-year-old male, in no significant distress, pain controlled. HEENT: Head, atraumatic and normocephalic. Sclerae are anicteric. Moist mucous membranes. No oral lesion. NECK: Supple. No JVD appreciated. No carotid bruit. LUNGS: Clear to auscultation bilaterally. No wheezing, rales, or rhonchi. HEART: S1, S2 present. Regular rate and rhythm. No rubs or gallops appreciated. ABDOMEN: Soft, nontender. Bowel sounds present. No rebound or guarding. No costovertebral angle tenderness. EXTREMITIES: There is a wound VAC present in the left foot. There is no significant leg edema. There is tenderness over the right hip. SKIN: Warm and dry. NEUROLOGIC: Grossly nonfocal. Moves all 4 extremities. PSYCHIATRY: Alert, awake, oriented x3. SKIN: Warm and dry. LYMPH NODES: No palpable lymph nodes in the neck. PERIPHERAL VASCULAR: Radial pulses palpable bilaterally. MUSCULOSKELETAL: No joint swelling tenderness. LABORATORY FINDINGS: EKG by my review showed sinus rhythm without significant ST-T wave changes. Right hip x-ray was consistent with right femoral neck fracture. Chest x-ray by my review showed some chronic changes at bases bilaterally. IMPRESSION: 1. Right femoral neck fracture. Management per Primary Service. 2. Diabetes mellitus type 2. 3. Hypertension with hypertensive urgency. 4. Acute kidney injury on chronic kidney disease stage 3. 5. Peripheral vascular disease. 6. Recent diagnosis of lytic lesions in the right femoral neck, T11 vertebral body, as well as left pubic root. Please note that the patient declined biopsy. 7. Recent left great toe amputation for osteomyelitis. 8. History of anemia, macrocytic. 9. Mild metabolic acidosis. PLAN: The patient is currently admitted to surgical floor. We will resume metoprolol from his recent discharge. He is unable to recall any of his home medications. We will hold FADUMO inhibitor and Lasix for now. Recheck basic metabolic profile in a.m. Continue IV fluids. We will add p.r.n. antihypertensives. Thank you for this consultation. We will follow with you. Job ID: [id number]
[2018-08-15] MEDS: Acetaminophen 500 MG TAB PO SCH ×5 (00:23→23:44)
[2018-08-15] MEDS: traMADol HCl 50 MG TAB PO SCH ×5 (00:24→23:44)
--- NOTE | 2018-08-15 00:58 | HP ---
CONSULTS: Orthopedic Surgery, Dr. Madrid. HISTORY OF PRESENT ILLNESS: This is an 82-year-old gentleman with a significant past medical history of diabetes, hypertension, history of right foot toe amputation, and recent left great toe amputation on 08/07/2018. The patient was discharged from the hospital on 08/12/2018. The patient with a known bone lesion at the right femur. The patient currently has a wound VAC in place from his recent left great toe amputation. The patient went to outpatient Wound Care today. When the patient was getting out of the vehicle today, the patient twisted and had sudden right hip pain. The patient denies falling. The patient denies any loss of consciousness, denies any chest pain, shortness of breath or dizziness prior to this event. The patient denies any other pain. The patient denies any urinary problems. The patient does report a recent cough. The patient also complains of redness and swelling to the left arm. The patient reports that he has had this redness and swelling since he was discharged from the hospital after they took the IV out. REVIEW OF SYSTEMS: A 10-point review of systems is negative unless otherwise stated in the above HPI. PAST MEDICAL HISTORY: Type 2 diabetes, hypertension, chronic kidney disease stage 3, lung mass likely carcinoma, peripheral vascular disease, microcytic anemia. PAST SURGICAL HISTORY: Right foot second toe amputation, left foot great toe amputation. SOCIAL HISTORY: Denies alcohol use, denies drug use, denies smoking history. The patient lives at home with his daughter and her family. The patient is Nepali-speaking only. KNOWN ALLERGIES: No known drug allergies. MEDICATIONS: Reported medications; 1. Furosemide 20 mg daily. 2. Glipizide 5 mg daily. 3. Losartan. 4. Captopril 25 mg daily. 5. Augmentin 500 mg twice a day for 7 days post discharge on 08/12. 6. Ferrous sulfate 325 mg twice a day. 7. Metoprolol 25 mg twice a day. 8. Aspirin 81 mg daily. PHYSICAL EXAMINATION: VITAL SIGNS: Blood pressure 180/81, pulse 73, respirations 16, SpO2 of 96% on room air, temperature 98.2. GENERAL: Elderly appearing gentleman, no acute distress, lying in ER hospital bed. HEENT: Head is normocephalic and atraumatic. Pupils are equal and reactive at 2 mm bilateral. Trachea is midline, mucous membranes are moist. RESPIRATORY: Bilateral breath sounds clear, diminished breath sounds in the bases. No wheezing, rales, or rhonchi. No respiratory distress. CARDIOVASCULAR: Regular rate and rhythm, no murmurs. ABDOMEN: Soft, nontender, and nondistended. Positive umbilical hernia. EXTREMITIES: Moves all extremities. Positive distal pulses in all extremities. Plus 1 pitting pedal edema, left greater than right. Left forearm swelling and redness, cellulitis. Cap refill less than 2 seconds in all extremities, right lower extremity with Wilbert wrap in place. Pain with palpation to right hip. Left lower extremity with wound VAC in place, status post left great toe amputation. NEUROLOGIC: No focal deficits. The patient is oriented to person, place, time, and event. LABORATORY DATA: WBC 8.2, RBC 4.60, hemoglobin 14.0, hematocrit 43.4, platelets 118. Sodium 137, potassium 4.5, chloride 107, BUN 29, creatinine 1.80, estimated GFR 36, glucose 120, calcium 9.5, total albumin 0.6, AST 22, ALT 19, alkaline phos 87. Serum total protein 7.0, albumin 3.7, globulin 3.3, ratio 1.1. IMAGING: Chest x-ray. Impression: Enlarged cardiac silhouette, bibasilar patchy densities with adjacent atelectasis and/or scarring. Hip x-ray, right femoral neck fracture. IMPRESSION: 1. Right hip fracture, status post twisting motion without fall. 2. Postop left great toe amputation. 3. Acute on chronic kidney injury. 4. Left arm cellulitis. 5. History of lytic bone lesion of right femur, lung mass, hypertension, microcytic anemia, diabetes mellitus type 2, peripheral vascular disease. PLAN: We will admit the patient to the surgical ortho floor. Dr. Madrid plans for surgical repair of right hip tomorrow. We will place the patient on a consistent carb diet. We will place the patient n.p.o. after midnight. We will place the patient on maintenance fluids, normal saline. We will continue patient's wound care and consult inpatient wound care for left great toe amputation with wound VAC in place. We will avoid NSAIDs and all nephrotoxic medications. We will place the patient on an insulin sliding scale and continue patient's home metoprolol. The plan will be discussed with Dr. Parrent after this dictation. Job ID: [id number]
[2018-08-15 01:20] VITALS: BMI 26.2
[2018-08-15 04:20] LABS: Phosphorus 3.6 mg/dL (2.3-4.7)
[2018-08-15 04:31] LABS: Anion Gap 15 mmol/L (10-20); BUN (Urea Nitrogen) 29 mg/dL (8.4-25.7); Calc. Creatinine Clearance 32 mL/min (70-130); Carbon Dioxide 17 mmol/L (23-31); Chloride 107 mmol/L (98-107); Estimated GFR-MDRD 38; Glucose 170 mg/dL (83-110); Magnesium 1.1 mg/dL (1.6-2.6); Potassium 4.5 mmol/L (3.5-5.1); Sodium 134 mmol/L (136-145)
[2018-08-15 05:21] LABS: Band 9 % (5-11); Hemoglobin 11.5 g/dL (14.0-18.0); Lymphocytes 16 % (21-51); MDiff Complete? YES; Mean Corpuscular HGB CONC 33.2 g/dL (32.0-36.0); Mean Corpuscular Hemoglobin 30.8 pg (27.0-31.0); Mean Corpuscular Volume 92.6 fL (78.0-98.0); Mean Platelet Volume 10.1 fL (7.4-10.4); Monocytes 10 % (0-10); Neutrophil 65 % (42-75); Platelet Count 94 thou/uL (130-400); Platelet Morphology Comment Appears Decreased; RBC Distribution Width 12.6 % (11.5-14.5); Red Blood Cell (RBC) Count 3.73 mill/uL (4.70-6.10); White Blood Cell (WBC) Count 6.6 thou/uL (4.8-10.8)
[2018-08-15] MEDS ORDERED: Magnesium 2 GM/50 ML 2 GM in Premix Bag 1 BAG IVPB SCH (05:30)
[2018-08-15] MEDS: Sodium Chloride 0.9% 1,000 ML IV SCH ×3 (05:39→21:09)
[2018-08-15] MEDS: Amlodipine 5 MG TAB PO SCH ×2 (08:19→21:02)
[2018-08-15] MEDS: Metoprolol Tartrate 25 MG TAB PO SCH ×2 (08:19→21:02)
[2018-08-15] MEDS: Senokot S 8.6-50 MG TAB PO SCH ×3 (08:19→22:06)
[2018-08-15] MEDS: Amoxicillin/Potassium Clav 500 MG TAB PO SCH ×2 (08:20→21:02)
--- NOTE | 2018-08-15 10:39 | PRG ---
DATE OF SERVICE: 08/15/2018 SUBJECTIVE: Mr. Reardon has no complaints this morning. Denies chest pain or dyspnea. OBJECTIVE: VITAL SIGNS: Blood pressure 155/70, pulse 66, respirations are 18. He is afebrile. Multiple voids via diaper. CHEST: Clear. HEART: Regular rate. Left foot wound VAC in place. ASSESSMENT: Right hip fracture; diabetes mellitus type 2; hypertension; stage 3 kidney injury; peripheral vascular disease; lytic lesion, right femoral neck. PLAN: Dr. Madrid to evaluate for repair today. Trauma will continue to follow. Job ID: [id number]
[2018-08-15] MEDS ORDERED: cefOXitin 2 GM VIAL ONE (10:58)
[2018-08-15] MEDS ORDERED: Sodium Chloride 0.9% 100 ML ONE (10:58)
[2018-08-15] MEDS ORDERED: Fentanyl 100 MCG/2 ML VIAL ONE (11:04)
[2018-08-15] MEDS ORDERED: Milk Of Magnesia 30 ML UDCUP PO PRN (11:18)
[2018-08-15] MEDS ORDERED: Cepastat Lozenges 1 LOZ PO PRN (11:18)
[2018-08-15] MEDS ORDERED: Ondansetron PF 4 MG/2 ML Vial IVP PRN (11:18)
[2018-08-15] MEDS ORDERED: Ondansetron ODT 4 MG TAB PO PRN (11:18)
[2018-08-15] MEDS ORDERED: Bisacodyl 10 MG SUPP PR PRN (11:18)
[2018-08-15] MEDS ORDERED: traMADol HCl 50 MG TAB PO PRN (11:18)
[2018-08-15] MEDS ORDERED: Fleet Enema 133 ML BOT PR PRN (11:18)
[2018-08-15] MEDS ORDERED: Bupivacaine HCl 0.5%/Epinephrine 1:200,000/PF 30 ml Vial ONE (12:20)
[2018-08-15] MEDS ORDERED: SUGAMMADEX SODIUM 200 MG/2 ML VIAL ONE (12:37)
--- NOTE | 2018-08-15 13:59 | OP ---
DATE OF PROCEDURE: 08/15/2018 PREOPERATIVE DIAGNOSIS: Pathologic fracture of the base of the neck of the right hip. POSTOPERATIVE DIAGNOSIS: Pathologic fracture of the base of the neck of the right hip. PROCEDURE PERFORMED: Open reduction and internal fixation of the right hip with a trochanteric fixation nail. ANESTHESIA: General. DESCRIPTION OF PROCEDURE: The patient was given preoperative IV antibiotics, taken to the operating room, placed in the supine position. Satisfactory general anesthesia was performed. The patient was placed on the fracture table. All bony prominences were well padded. Traction was applied to well padded foot and ankle, and C-arm verified good alignment of the fracture at the base of the femoral neck on both AP, lateral, multiple oblique views. The lateral aspect of the right hip was sterilely prepped and draped. An incision was made proximal to the greater trochanter approximately 2 inches in length, and under fluoroscopic visualization, a guide pin was placed through the greater trochanter, it was over-reamed, and a [employer] 10 mm x 170 mm trochanteric fixation nail was inserted into the proximal femur through a separate incision 2 inches in length in the lateral aspect of the thigh. A guide pin was placed up through the nail and up through the neck and into the head. Appropriate size screw was measured. The lateral cortex was over-reamed, and a 95 mm screw was inserted through the anurag into the femoral neck. It was then tightened down to the locking mechanism in the anurag, and then a 5 mm locking screw was placed in the distal aspect of the anurag and the femur. This was all again visualized with C-arm. The wounds were then irrigated with antibiotic solution and closed using 2-0 Vicryl and skin toribio. 30 mL of 0.5% Marcaine with epinephrine was used in both wounds. Sterile dressing was applied. The patient was awakened, extubated, and transferred to recovery room in stable condition. ESTIMATED BLOOD LOSS: 60 mL. COMPLICATIONS: None. Job ID: [id number]
[2018-08-15] MEDS ORDERED: CEFAZOLIN 2 GM in Premix Bag 1 BAG IVPB SCH (14:00)
--- NOTE | 2018-08-15 14:07 | PDOC.PN ---
- Subjective Encounter Start Date: 08/15/18 Encounter Start Time: 14:06 Patient seen and examined, no new issues. - Objective Vital Signs & Weight: Vital Signs (12 hours) Temp Pulse Resp BP BP Pulse Ox 08/15/18 08:20 96 08/15/18 08:19 66 155/70 H 08/15/18 07:49 97.5 F L 66 18 155/70 H 96 08/15/18 03:55 98.7 F 69 18 136/64 95 Weight Weight 152 lb 11.2 oz I&O: 08/14/18 08/15/18 08/16/18 06:59 06:59 06:59 Intake Total 1390 Balance 1390 Result Diagrams: 08/15/18 03:58 08/15/18 03:58 Additional Labs: Accuchecks 08/15/18 08/14/18 06:28 21:29 POC Glucose 116 H 121 H Phys Exam - Physical Examination Constitutional: NAD HEENT: PERRLA, moist MMs Neck: no nodes, no JVD Respiratory: no wheezing, no rales Cardiovascular: RRR, no significant murmur, no rub Gastrointestinal: soft, non-tender Musculoskeletal: no edema (bandages present/wound vac), pulses present Dx/Plan (1) CKD (chronic kidney disease) stage 3, GFR 30-59 ml/min Code(s): N18.3 - CHRONIC KIDNEY DISEASE, STAGE 3 (MODERATE) Status: Chronic (2) DM type 2 (diabetes mellitus, type 2) Status: Chronic Qualifiers: Diabetes mellitus terminal manager insulin use: without care home use Diabetes mellitus complication status: with kidney complications Diabetes mellitus complication detail: with chronic kidney disease Chronic kidney disease stage : stage 3 (moderate) Qualified Code(s): E11.22 - Type 2 diabetes mellitus with diabetic chronic kidney disease; N18.3 - Chronic kidney disease, stage 3 ( moderate) Comment: cont ISS accuchecks (3) HTN (hypertension) Code(s): I10 - ESSENTIAL (PRIMARY) HYPERTENSION Status: Chronic Comment: stable. cont captopril and metoprolol (4) PVD (peripheral vascular disease) Code(s): I73.9 - PERIPHERAL VASCULAR DISEASE, UNSPECIFIED Status: Chronic Comment: s/p angioplasty (5) Cellulitis of right foot Code(s): L03.115 - CELLULITIS OF RIGHT LOWER LIMB Status: Resolved - Plan * BP stable * BS Glucose acceptable, will adjust insulins as appropriate * sx planned for today * no changes in plan of care for now
[2018-08-15] MEDS ORDERED: Glycopyrrolate 0.2 MG/ML 5 ML SYRINGE ONE (14:32)
[2018-08-15] MEDS ORDERED: Rocuronium Bromide 10 MG/ML (10ML VIAL) ONE (14:32)
[2018-08-15] MEDS ORDERED: Succinylcholine Chloride 20 MG/ML 10 ml SYRINGE FS ONE (14:32)
[2018-08-15] MEDS ORDERED: Lidocaine 2% PF 5 ML VIAL ONE (14:32)
[2018-08-15] MEDS ORDERED: PROPOFOL 200 MG/20 ML VIAL ONE (14:32)
[2018-08-15] MEDS ORDERED: Ondansetron PF 4 MG/2 ML Vial ONE (14:32)
[2018-08-15] MEDS ORDERED: Dexamethasone 20 MG/5 ML VIAL ONE (14:32)
[2018-08-15] MEDS ORDERED: ePHEDrine 50 MG/ML VIAL ONE (14:32)
--- NOTE | 2018-08-15 14:37 | RAD ---
INTRAOPERATIVE FLUOROSCOPIC IMAGING RIGHT HIP: CLINICAL HISTORY: ORIF, fracture fixation. FINDINGS: Intraoperative fluoroscopic imaging of right hip reveals gamma nail placement of the proximal right femur traversing a femoral neck fracture. Osseous detail is otherwise limited. IMPRESSION: Intraoperative fluoroscopic imaging for right proximal femoral fracture fixation. Transcribed Date/Time: 08/15/2018 2:57 PM
[2018-08-15] MEDS: Polyethylene Glycol 3350 17 GM Packet PO SCH (14:46)
[2018-08-15] MEDS: Insulin Regular 300 UNITS/3 ML VIAL SC PRN (16:58)
[2018-08-15] MEDS: Ferrous Sulfate 325 MG TAB PO SCH (21:02)
[2018-08-15] MEDS: Ferrous Gluconate 324 MG TAB PO SCH (21:02)
--- NOTE | 2018-08-15 22:40 | CON ---
DATE OF CONSULTATION: 08/15/2018 HISTORY OF PRESENT ILLNESS: Mr. Reardon is an 82-year-old male who has a history of diabetes, hypertension, peripheral vascular disease, lung cancer with metastasis. The patient has had multiple toe amputations. He had a fairly recent left great toe amputation on 08/07/2018, has a wound VAC. He was noted to have a bone lesion in the proximal aspect of the right femur. The patient simply getting out of the vehicle, twisted, had immediate pain in the right hip. He was brought to the emergency room and x-rays revealed a pathologic fracture at the base of the femoral neck of the right hip. He has no other problems elsewhere. PAST MEDICAL HISTORY: Medical illnesses; type 2 diabetes, hypertension, chronic kidney disease, lung cancer with metastatic disease, peripheral vascular disease. PAST SURGICAL HISTORY: Multiple toe amputations. PHYSICAL EXAMINATION: The patient has pain with any attempted movement of the right hip. Skin is in good condition over the right hip and thigh area. He does have poor pulses distally. DIAGNOSTIC STUDIES: X-rays were reviewed of the right hip. The patient does have a basicervical fracture of the right hip through a radiolucent lesion. IMPRESSION: 1. Pathologic fracture at the base of the right femoral neck. 2. Peripheral vascular disease. 3. Type 2 diabetes. 4. Acute on chronic kidney injury. PLAN: I discussed with the patient and his family that we need to stabilize the fracture. One option would be trochanteric fixation nail to provide stability for the hip to allow the patient to be mobile. The other option would be proximal femoral replacement, which would be a bigger surgery. The patient has consented to open reduction and internal fixation. We will proceed with the surgery to stabilize the proximal femur to allow for mobilization. Potential risks with the condition of surgery include, but are not limited to infection, bleeding, pain, damage to blood vessels or nerves, nonunion, malunion, patient may require additional surgery, and DVT and PE formation. The patient's and family's questions were answered and agreed to procedure. Job ID: [id number]
[2018-08-16 05:15] LABS: Mean Corpuscular HGB CONC 32.1 g/dL (32.0-36.0); Mean Corpuscular Hemoglobin 30.5 pg (27.0-31.0); Mean Platelet Volume 9.9 fL (7.4-10.4); Platelet Count 131 thou/uL (130-400); RBC Distribution Width 12.5 % (11.5-14.5)
[2018-08-16 05:35] LABS: Anion Gap 12 mmol/L (10-20); BUN (Urea Nitrogen) 29 mg/dL (8.4-25.7); Calc. Creatinine Clearance 34 mL/min (70-130); Calcium 7.9 mg/dL (7.8-10.44); Carbon Dioxide 19 mmol/L (23-31); Chloride 107 mmol/L (98-107); Estimated GFR-MDRD 41; Glucose 180 mg/dL (83-110); Magnesium 1.4 mg/dL (1.6-2.6); Potassium 4.7 mmol/L (3.5-5.1); Sodium 133 mmol/L (136-145)
[2018-08-16] MEDS: Acetaminophen 500 MG TAB PO SCH ×3 (06:05→18:23)
[2018-08-16] MEDS: traMADol HCl 50 MG TAB PO SCH ×3 (06:05→18:23)
[2018-08-16] MEDS: Sodium Chloride 0.9% 1,000 ML IV SCH (06:06)
[2018-08-16] MEDS: Insulin Regular 300 UNITS/3 ML VIAL SC PRN (06:06)
[2018-08-16] MEDS ORDERED: Furosemide 20 MG TAB PO SCH (09:00)
[2018-08-16] MEDS: Polyethylene Glycol 3350 17 GM Packet PO SCH (09:50)
[2018-08-16] MEDS: glipiZIDE 5 MG TAB PO SCH (09:53)
[2018-08-16] MEDS: Ferrous Sulfate 325 MG TAB PO SCH ×2 (09:53→20:18)
[2018-08-16] MEDS: Multivitamin W/ Minerals 1 TAB PO SCH (09:53)
[2018-08-16] MEDS: Senokot S 8.6-50 MG TAB PO SCH ×3 (09:53→20:18)
[2018-08-16] MEDS: Aspirin 81 mg Enteric Coated Tablet PO SCH (09:53)
[2018-08-16] MEDS: Amlodipine 5 MG TAB PO SCH ×2 (09:54→20:15)
[2018-08-16] MEDS: Metoprolol Tartrate 25 MG TAB PO SCH ×2 (09:54→20:18)
[2018-08-16] MEDS: Furosemide 20 MG TAB PO SCH (09:54)
[2018-08-16] MEDS: Amoxicillin/Potassium Clav 500 MG TAB PO SCH ×2 (09:54→20:17)
[2018-08-16] MEDS: Ferrous Gluconate 324 MG TAB PO SCH (09:59)
--- NOTE | 2018-08-16 13:13 | PDOC.PN ---
- Subjective Encounter Start Date: 08/16/18 Encounter Start Time: 13:05 Patient seen and examined, no new issues or complaints. - Objective Vital Signs & Weight: Vital Signs (12 hours) Temp Pulse Resp BP BP Pulse Ox 08/16/18 10:54 97.7 F 66 14 149/56 H 95 08/16/18 09:54 69 154/74 H 08/16/18 09:50 69 154/74 H 08/16/18 08:40 94 L 08/16/18 07:51 97.7 F 69 14 154/74 H 94 L 08/16/18 04:57 97.6 F 68 16 151/71 H 94 L Weight Admit Weight 152 lb 11.2 oz Weight 152 lb 11.2 oz I&O: 08/15/18 08/16/18 08/17/18 06:59 06:59 06:59 Intake Total 1390 2295 Balance 1390 2295 Result Diagrams: 08/16/18 04:28 08/16/18 04:28 Additional Labs: Accuchecks 08/16/18 08/16/18 08/15/18 10:54 06:06 20:44 POC Glucose 177 H 202 H 209 H 08/15/18 15:51 POC Glucose 166 H Phys Exam - Physical Examination Constitutional: NAD HEENT: PERRLA, moist MMs, sclera anicteric Neck: no nodes, no JVD, supple Respiratory: no wheezing, no rales, no rhonchi Cardiovascular: RRR, no significant murmur, no rub Gastrointestinal: soft, non-tender, no distention, positive bowel sounds Dx/Plan (1) CKD (chronic kidney disease) stage 3, GFR 30-59 ml/min Code(s): N18.3 - CHRONIC KIDNEY DISEASE, STAGE 3 (MODERATE) Status: Chronic (2) DM type 2 (diabetes mellitus, type 2) Status: Chronic Qualifiers: Diabetes mellitus shelter insulin use: without shelter use Diabetes mellitus complication status: with kidney complications Diabetes mellitus complication detail: with chronic kidney disease Chronic kidney disease stage : stage 3 (moderate) Qualified Code(s): E11.22 - Type 2 diabetes mellitus with diabetic chronic kidney disease; N18.3 - Chronic kidney disease, stage 3 ( moderate) Comment: cont ISS accuchecks (3) HTN (hypertension) Code(s): I10 - ESSENTIAL (PRIMARY) HYPERTENSION Status: Chronic Comment: stable. cont captopril and metoprolol (4) PVD (peripheral vascular disease) Code(s): I73.9 - PERIPHERAL VASCULAR DISEASE, UNSPECIFIED Status: Chronic Comment: s/p angioplasty (5) Cellulitis of right foot Code(s): L03.115 - CELLULITIS OF RIGHT LOWER LIMB Status: Resolved - Plan * Cont current plan of care * Pain controlled * vitals stable * no changes in plan of care from medial point of view
--- NOTE | 2018-08-16 14:53 | PRG ---
DATE OF SERVICE: 08/16/2018 SUBJECTIVE: An 82-year-old gentleman, postoperative day #2, ORIF right hip with trochanteric fixation nail. The patient has no overnight events. The patient is tolerating a diabetic diet. OBJECTIVE: GENERAL: The patient is awake and alert, in no acute distress. RESPIRATORY: No wheezing, rales, or rhonchi. CARDIOVASCULAR: Regular rate and rhythm. No murmurs. ABDOMEN: Soft, nontender, and nondistended. EXTREMITIES: Moves all extremities. Right hip dressing is clean, dry, and intact. IMPRESSION: 1. Pathologic right hip fracture. 2. Postoperative day #2, open reduction and internal fixation, right hip with trochanteric fixation nail. 3. History of lytic bone lesion, right femur; lung mass; hypertension; diabetes, type 2; and peripheral vascular disease. PLAN: Continue physical and occupational therapy. The patient is pending placement to rehab bed. Continue having wound care. Address wound VAC to left foot. Continue the patient's pain regimen. The plan was discussed with the attending physician, who agrees. Job ID: [id number]
[2018-08-17] MEDS: traMADol HCl 50 MG TAB PO SCH ×4 (00:20→18:33)
[2018-08-17] MEDS: Acetaminophen 500 MG TAB PO SCH ×4 (00:20→18:32)
[2018-08-17 04:28] LABS: Hemoglobin 10.7 g/dL (14.0-18.0); Mean Corpuscular Hemoglobin 30.5 pg (27.0-31.0); Mean Corpuscular Volume 95.4 fL (78.0-98.0); Mean Platelet Volume 9.2 fL (7.4-10.4); Platelet Count 135 thou/uL (130-400); RBC Distribution Width 12.6 % (11.5-14.5); White Blood Cell (WBC) Count 8.1 thou/uL (4.8-10.8)
--- NOTE | 2018-08-17 09:13 | PDOC.PN ---
- Subjective Encounter Start Date: 08/17/18 Encounter Start Time: 11:30 Subjective: Patient without complaint. No pain while at rest. No fever. No SOB/ CP/N/V. - Objective MAR Reviewed: Yes Vital Signs & Weight: Vital Signs (12 hours) Temp Pulse Resp BP Pulse Ox 08/17/18 07:40 98.6 F 64 16 149/74 H 94 L 08/17/18 04:00 97.7 F 65 16 161/69 H 92 L 08/17/18 00:00 98.1 F 63 16 176/77 H 91 L Weight Admit Weight 152 lb 11.2 oz Weight 152 lb 11.2 oz I&O: 08/16/18 08/17/18 08/18/18 06:59 06:59 06:59 Intake Total 2295 1810 Balance 2295 1810 Result Diagrams: 08/17/18 04:12 08/16/18 04:28 Additional Labs: Accuchecks 08/17/18 08/16/18 08/16/18 06:05 21:12 15:41 POC Glucose 121 H 164 H 148 H 08/16/18 10:54 POC Glucose 177 H Phys Exam - Physical Examination Constitutional: NAD HEENT: moist MMs Respiratory: no wheezing, no rales, no rhonchi Cardiovascular: RRR, no significant murmur Gastrointestinal: soft, positive bowel sounds left great toe amputation site with dressing c/d/i, no wound vac now. Neurological: non-focal Psychiatric: normal affect, A&O x 3 Dx/Plan (1) Pathological fracture of right hip Code(s): M84.451A - PATHOLOGICAL FRACTURE, RIGHT FEMUR, INIT ENCNTR FOR FRACTURE Status: Acute Qualifiers: Pathology associated with fracture: neoplastic disease Comment: s/p open reduction and fixation with nail (2) Toe osteomyelitis, left Code(s): M86.9 - OSTEOMYELITIS, UNSPECIFIED Status: Acute Comment: s/p amputation and on wound Vac. Proteus in culture which is pansensitive. On Augmentin until 08/18/18 (3) DM type 2 (diabetes mellitus, type 2) Status: Chronic Qualifiers: Diabetes mellitus correction insulin use: without termite control servicer use Diabetes mellitus complication status: with kidney complications Diabetes mellitus complication detail: with chronic kidney disease Chronic kidney disease stage : stage 3 (moderate) Qualified Code(s): E11.22 - Type 2 diabetes mellitus with diabetic chronic kidney disease; N18.3 - Chronic kidney disease, stage 3 ( moderate) Comment: cont ISS accuchecks (4) CKD (chronic kidney disease) stage 3, GFR 30-59 ml/min Code(s): N18.3 - CHRONIC KIDNEY DISEASE, STAGE 3 (MODERATE) Status: Chronic (5) HTN (hypertension) Code(s): I10 - ESSENTIAL (PRIMARY) HYPERTENSION Status: Chronic Comment: stable. cont captopril and metoprolol (6) Lung mass Code(s): R91.8 - OTHER NONSPECIFIC ABNORMAL FINDING OF LUNG FIELD Status: Chronic Comment: Likley Carcinoma. Need Tissue sample but pt refuses surgical procedures. (7) PVD (peripheral vascular disease) Code(s): I73.9 - PERIPHERAL VASCULAR DISEASE, UNSPECIFIED Status: Chronic Comment: s/p angioplasty - Plan cont current plan of care, continue antibiotics, PT/OT awaiting rehab placement if possible * . - Discharge Day Encounter end time: 11:40
[2018-08-17] MEDS: Furosemide 20 MG TAB PO SCH (09:37)
[2018-08-17] MEDS: glipiZIDE 5 MG TAB PO SCH (09:37)
[2018-08-17] MEDS: Amlodipine 5 MG TAB PO SCH ×2 (09:38→20:30)
[2018-08-17] MEDS: Aspirin 81 mg Enteric Coated Tablet PO SCH ×3 (09:38→20:31)
[2018-08-17] MEDS: Metoprolol Tartrate 25 MG TAB PO SCH ×2 (09:39→20:31)
[2018-08-17] MEDS: Ferrous Sulfate 325 MG TAB PO SCH ×2 (09:40→20:30)
[2018-08-17] MEDS: Amoxicillin/Potassium Clav 500 MG TAB PO SCH ×2 (09:41→20:29)
[2018-08-17] MEDS: Multivitamin W/ Minerals 1 TAB PO SCH (09:42)
[2018-08-17] MEDS: Polyethylene Glycol 3350 17 GM Packet PO SCH (09:43)
[2018-08-17] MEDS: Senokot S 8.6-50 MG TAB PO SCH ×2 (09:43→20:31)
--- NOTE | 2018-08-17 13:56 | PRG ---
DATE OF SERVICE: 08/17/2018 Erwin Reardon was readmitted over the weekend for pathological right hip fracture. Just prior to this readmission, the patient had been counseled extensively last admission advising him to undergo this, but he had chosen not to. Hopefully, pathology from this will confirm the etiology suspect right lung cancer. The patient has not smoked in 12 years. Credit Risk Review Officer service was used to discuss with him today. Discussion with him regarding whether he would agree to go to a rehab or group home if accepted and he said he would consider that, but he wants the social worker palliative care telephonic nurse case manager to speak to his and his daughter. He states that he would consider adjunctive chemotherapy once tissue diagnosis is confirmed. My recommendation is that we obtain tissue diagnosis, we refer him to outpatient Oncology and see if he keeps his appointment. Currently, we will initiate rehab and anticipate he will go to rehab in the next 1 or 2 days. Hopefully, a charitable bed can be confirmed in [place]. The patient is stable to be discharged at any time and he can see Oncology as an outpatient. His left great toe got amputated. It is healing and looks good and granulating. The wound VAC was reapplied. At some point, we will discuss code status with him in the future once pathology is confirmed. Job ID: [id number]
--- NOTE | 2018-08-17 21:33 | PRG ---
DATE OF SERVICE: 08/17/2018 SUBJECTIVE: Mr. Reardon's pain has decreased. He is working with PT and OT. OBJECTIVE: VITAL SIGNS: The patient has been afebrile, pulse 61, respiratory rate 20, blood pressure 153/72, and O2 saturations 92%. LABORATORY DATA: Shows white count 8.1, hemoglobin 10.7, hematocrit 33.4. PLAN: The patient will continue with physical and occupational therapy. He will be going to either rehabilitation or [facility] facility to help mobilization and ambulation. Job ID: [id number]
[2018-08-18] MEDS: traMADol HCl 50 MG TAB PO SCH ×4 (00:52→17:27)
[2018-08-18] MEDS: Acetaminophen 500 MG TAB PO SCH ×4 (00:52→17:27)
[2018-08-18 04:38] LABS: Hemoglobin 11.1 g/dL (14.0-18.0); Mean Corpuscular HGB CONC 32.1 g/dL (32.0-36.0); Mean Corpuscular Hemoglobin 30.6 pg (27.0-31.0); Mean Corpuscular Volume 95.1 fL (78.0-98.0); Platelet Count 136 thou/uL (130-400); RBC Distribution Width 12.5 % (11.5-14.5); Red Blood Cell (RBC) Count 3.64 mill/uL (4.70-6.10); White Blood Cell (WBC) Count 6.9 thou/uL (4.8-10.8)
--- NOTE | 2018-08-18 08:22 | PDOC.PN ---
- Subjective Encounter Start Date: 08/18/18 Encounter Start Time: 10:10 Subjective: Patient has been getting up with PT, but very weak, not ambulating more -: than a few feet. Denies pain in hip or foot. No N/V. No SOB. No fever. - Objective MAR Reviewed: Yes Vital Signs & Weight: Vital Signs (12 hours) Temp Pulse Resp BP BP Pulse Ox 08/18/18 07:20 97.8 F 61 16 160/74 H 96 08/18/18 04:35 97.8 F 65 16 156/71 H 95 08/18/18 00:25 98.1 F 69 14 139/72 96 08/17/18 20:30 66 157/73 H Weight Admit Weight 152 lb 11.2 oz Weight 152 lb 11.2 oz I&O: 08/17/18 08/18/18 08/19/18 06:59 06:59 06:59 Intake Total 1810 1547 Balance 1810 1547 Result Diagrams: 08/18/18 04:25 08/16/18 04:28 Additional Labs: Accuchecks 08/18/18 08/17/18 08/17/18 06:22 20:58 15:15 POC Glucose 95 128 H 99 08/17/18 11:11 POC Glucose 128 H Phys Exam - Physical Examination Constitutional: NAD HEENT: moist MMs Respiratory: no wheezing, no rales, no rhonchi Cardiovascular: RRR Gastrointestinal: soft, non-tender, positive bowel sounds Musculoskeletal: no edema left great toe amputation site with wound vac in place Psychiatric: normal affect, A&O x 3 Dx/Plan (1) Pathological fracture of right hip Code(s): M84.451A - PATHOLOGICAL FRACTURE, RIGHT FEMUR, INIT ENCNTR FOR FRACTURE Status: Acute Qualifiers: Pathology associated with fracture: neoplastic disease Comment: s/p open reduction and fixation with nail (2) Toe osteomyelitis, left Code(s): M86.9 - OSTEOMYELITIS, UNSPECIFIED Status: Acute Comment: s/p amputation and on wound Vac. Proteus in culture which is pansensitive. Finishes Augmentin today 08/18/18 (3) DM type 2 (diabetes mellitus, type 2) Status: Chronic Qualifiers: Diabetes mellitus longwall headgate operator insulin use: without jail use Diabetes mellitus complication status: with kidney complications Diabetes mellitus complication detail: with chronic kidney disease Chronic kidney disease stage : stage 3 (moderate) Qualified Code(s): E11.22 - Type 2 diabetes mellitus with diabetic chronic kidney disease; N18.3 - Chronic kidney disease, stage 3 ( moderate) Comment: cont ISS accuchecks (4) CKD (chronic kidney disease) stage 3, GFR 30-59 ml/min Code(s): N18.3 - CHRONIC KIDNEY DISEASE, STAGE 3 (MODERATE) Status: Chronic (5) HTN (hypertension) Code(s): I10 - ESSENTIAL (PRIMARY) HYPERTENSION Status: Chronic Comment: stable. cont captopril and metoprolol (6) Lung mass Code(s): R91.8 - OTHER NONSPECIFIC ABNORMAL FINDING OF LUNG FIELD Status: Chronic Comment: Likley Carcinoma. Need Tissue sample but pt refuses surgical procedures. Hopefully will get tissue dx from hip surgery. (7) PVD (peripheral vascular disease) Code(s): I73.9 - PERIPHERAL VASCULAR DISEASE, UNSPECIFIED Status: Chronic Comment: s/p angioplasty - Plan cont current plan of care, PT/OT rehab if able to arrange [facility] bed, outpatient heme/onc followup about -: pathology from the hip lesion * . - Discharge Day Encounter end time: 10:30
[2018-08-18] MEDS: Amlodipine 5 MG TAB PO SCH (08:35)
[2018-08-18] MEDS: Multivitamin W/ Minerals 1 TAB PO SCH (08:35)
[2018-08-18] MEDS: glipiZIDE 5 MG TAB PO SCH (08:35)
[2018-08-18] MEDS: Metoprolol Tartrate 25 MG TAB PO SCH (08:35)
[2018-08-18] MEDS: Ferrous Sulfate 325 MG TAB PO SCH (08:35)
[2018-08-18] MEDS: Polyethylene Glycol 3350 17 GM Packet PO SCH (08:36)
[2018-08-18] MEDS: Amoxicillin/Potassium Clav 500 MG TAB PO SCH (08:36)
[2018-08-18] MEDS: Furosemide 20 MG TAB PO SCH (08:36)
[2018-08-18] MEDS: Aspirin 81 mg Enteric Coated Tablet PO SCH (08:36)
[2018-08-18] MEDS: Senokot S 8.6-50 MG TAB PO SCH (08:37)
[2018-08-18] MEDS ORDERED: traMADol HCl 50 MG TAB PO PRN (10:40)
[2018-08-18] MEDS: Insulin Regular 300 UNITS/3 ML VIAL SC PRN (11:28)
[2018-08-18 16:29] VITALS: BP 169/77; TEMP 98.1
--- NOTE | 2018-08-19 03:16 | DIS ---
DATE OF ADMISSION: 08/14/2018 DATE OF DISCHARGE: 08/18/2018 ADMISSION DIAGNOSES: Pathological right hip fracture, previous left great toe amputation, and left arm cellulitis. DISCHARGE DIAGNOSES: Pathological right hip fracture, previous left great toe amputation, and left arm cellulitis. CONSULTING PHYSICIAN: Dr. Madrid [facility]. PROCEDURES: The patient went to the OR on August 15, 2018, received ORIF of the right hip with intertrochanteric fixation nail. HOSPITAL COURSE: The patient is an 82-year-old male who had been recently discharged from the hospital 2 days before presentation for left great toe amputation and left arm cellulitis. He re-presented to the emergency department after he had a twist and sat with right-sided hip pain. Upon evaluation, it was noted that he had a pathological right hip fracture and lytic bone lesions, which were previously known about. 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 He did go to the OR with Dr. Madrid on August 15, 2018, received ORIF of the right hip with intertrochanteric fixation nail. A biopsy was taken of the bone at that time and sent for pathology which has not yet returned at the time of discharge. He worked with Physical and Occupational Therapy. He was also seen by Wound Care, wound VAC placed to his left great toe, that was removed the day before discharge and the patient just had regular dressing changes. At the time of discharge, the patient was working with Physical and Occupational Therapy, was tolerating regular diet and his pain was well controlled. He was also restarted on all of his home medications. DISCHARGE DISPOSITION: shelter facility. DISCHARGE CONDITION: Satisfactory. PHYSICAL EXAMINATION: VITAL SIGNS: Temperature 98.3, pulse 61, respirations 16, oxygen saturation 95% on room air, blood pressure 159/72. GENERAL: Well-appearing elderly male, lying in bed with no signs of acute distress. PULMONARY: Equal chest rise and fall. Clear breath sounds bilaterally. No signs of acute respiratory distress. CARDIAC: Regular rate and rhythm. No murmurs, gallops, or rubs. GASTROINTESTINAL: Soft, nontender, nondistended. EXTREMITIES: 2+ pulses in all extremities. No significant swelling noted. Gross motor and sensation intact in all extremities. Dressing to left lower extremity is clean, dry, and intact with no signs of infection. DISCHARGE INSTRUCTIONS: The patient was discharged to a [facility] facility. His activity as tolerated with weightbearing as tolerated to all extremities. He is to receive a diabetic diet. Work with Physical and Occupational Therapy as well as Wound Care. He is to use a walker and incentive spirometer as well. DISCHARGE MEDICATIONS: Include; 1. Tylenol. 2. Amlodipine. 3. Amoxicillin. 4. Aspirin. 5. Captopril. 6. Ferrous sulfate. 7. Lasix. 8. Glipizide. 9. Metoprolol. 10. Vitamins with minerals. 11. MiraLAX. 12. Senokot S. 13. Tramadol. FOLLOWUP APPOINTMENTS: The patient is to follow up with Dr. Madrid in clinic in 2 weeks. This is merely a summary of the patient's hospitalization. For full details, please see his medical record in its entirety. Job ID: [id number]
== END 2018-08-18 17:45 | DRG 481 ==
LOC: ERS 14:34 → SURG A 19:31
PROVIDERS: ADMIT Surgery; ATTEND Surgery
PROC: 0QS604Z Reposition Right Upper Femur with Internal Fixation Device, Open Approach (ICD-10-PCS; principal; 2018-08-15)
DX: M84.451A Pathological fracture, right femur, initial encounter for fracture (principal); N17.9 Acute kidney failure, unspecified; L03.114 Cellulitis of left upper limb; E87.2 Acidosis; M86.9 Osteomyelitis, unspecified; E11.22 Type 2 diabetes mellitus with diabetic chronic kidney disease; I12.9 Hypertensive chronic kidney disease with stage 1 through stage 4 chronic kidney disease, or unspecified chronic kidney disease; N18.3 Chronic kidney disease, stage 3 (moderate); I73.9 Peripheral vascular disease, unspecified; D53.9 Nutritional anemia, unspecified; Z89.421 Acquired absence of other right toe(s); Z79.82 Long term (current) use of aspirin
CPT/HCPCS: 36415; 36416; 71045; 76000; 80048; 80053; 83735; 84100; 85025; 85027; 93005; 94760; 96374; 96376; C1713; C1769; J0131; J0360; J0670; J0690; J0694; J1100; J1815; J2001; J2405; J2704; J3010; J3475; J3490

== ENCOUNTER 2018-11-30 09:49 | Emergency (ER) | payer MEDICAID ==
[2018-11-30 12:52] LABS: #Eosinphils 0.1 thou/uL (0.0-0.7); #Lymphocytes 1.8 thou/uL (1.20-3.40); #Monocytes 0.5 thou/uL (0.11-0.59); #Neutrophils 3.5 thou/uL (1.40-6.50); %Basophils 0.3 % (0.0-1.0); %Eosinophils 1.8 % (0.0-10.0); %Lymphocytes 30.4 % (21.0-51.0); %Neutrophils 58.5 % (42.0-75.0); Hemoglobin 12.8 g/dL (14.0-18.0); Mean Corpuscular HGB CONC 33.1 g/dL (32.0-36.0); Mean Corpuscular Hemoglobin 30.5 pg (27.0-31.0); Mean Corpuscular Volume 92.3 fL (78.0-98.0); Mean Platelet Volume 9.8 fL (7.4-10.4); Platelet Count 132 thou/uL (130-400); RBC Distribution Width 12.1 % (11.5-14.5); Red Blood Cell (RBC) Count 4.21 mill/uL (4.70-6.10)
[2018-11-30 13:19] LABS: ALT (SGPT) Less than 7 U/L (8-55); AST (SGOT) 11 U/L (5-34); Albumin 3.8 g/dL (3.4-4.8); Alkaline Phosphatase 86 U/L (40-150); Anion Gap 12 mmol/L (10-20); BUN (Urea Nitrogen) 57 mg/dL (8.4-25.7); Bilirubin, Total 0.3 mg/dL (0.2-1.2); Calc. Creatinine Clearance 0 mL/min (70-130); Calcium 9.6 mg/dL (7.8-10.44); Carbon Dioxide 28 mmol/L (23-31); Chloride 102 mmol/L (98-107); Estimated GFR-MDRD 25; Globulin 3.3 g/dL (2.4-3.5); Glucose 196 mg/dL (83-110); Potassium 4.6 mmol/L (3.5-5.1); Protein, Total 7.1 g/dL (5.8-8.1); Sodium 137 mmol/L (136-145)
--- NOTE | 2018-11-30 13:40 | RAD ---
XR Foot Lt 3 View STANDARD HISTORY: Injury, left foot pain FINDINGS: No fracture, bony destruction, periosteal reaction or dislocation is identified. Interval changes of amputation at the level of the base of the proximal phalanx of the left great to e are seen since exam of 08/04/2018. Postop changes and metallic hardware in the distal tibia and fibula are again noted.
[2018-11-30] MEDS ORDERED: Triple Antibiotic Oint 1 GM Packet ONE (14:14)
== END 2018-11-30 14:30 | disposition home or self-care (01) ==
LOC: ERS 09:49
DX: L03.032 Cellulitis of left toe (principal); E11.22 Type 2 diabetes mellitus with diabetic chronic kidney disease; I12.9 Hypertensive chronic kidney disease with stage 1 through stage 4 chronic kidney disease, or unspecified chronic kidney disease; N18.9 Chronic kidney disease, unspecified; Z79.82 Long term (current) use of aspirin; Z79.899 Other long term (current) drug therapy
CPT/HCPCS: 36415; 80053; 85025; 96360